=== PATIENT | female | born 1980 | race Caucasian/White ===

== ENCOUNTER 2016-03-09 15:48 | Emergency (ER) | payer BC ==
[2016-03-09 15:58] VITALS: BP 138/91
--- NOTE | 2016-03-09 16:16 | UC ---
Skin Complaint HPI - History of Current Complaint Chief Complaint: UCSkin Time Seen by Provider: 03/09/16 16:03 Stated Complaint: RIGHT EAR ? CYST PAIN Hx Obtained From: Patient Hx Last Menstrual Period: DEPO ?: No Onset/Duration: Sudden Onset - had a cyst incised this morning. Provider would not prescribe narcotic, Lasting Hours - 5, Still Present Onset Severity: Moderate Current Severity: Moderate Location: Other - right side of the neck behind the ear. Character: Pain Aggravating: Touch Alleviating: Nothing Associated Signs & Symptoms: Positive: Tenderness Related History: Other: - draining abscess behind the right ear. - Allergy/Home Medications Allergies/Adverse Reactions: Allergies Allergy/AdvReac Type Severity Reaction Status Date / Time Codeine Allergy Intermediate Hives Verified 03/09/16 15:58 Tramadol Allergy Intermediate Hives Verified 03/09/16 15:58 Naproxen [From Naprosyn] Allergy HIVES & SOB Verified 03/09/16 15:58 Home Medications: Home Medications Amoxicillin/Clavulanate TAB* [Augmentin TAB 875*] 875 mg PO BID 03/09/16 [ History Confirmed 03/09/16] Review of Systems Constitutional: Chills ENT: Ear Ache - behind right ear radiating down the jaw. All Other Systems Reviewed And Are Negative: Yes PMH/Surg Hx/FS Hx/Imm Hx Endocrine History Of: Reports: Thyroid Disease - Graves Disease ("borderline"). She is being followed by PCP. Denies: Diabetes, Hyperthyroidism, Hypothyroidism, Dyslipidemia Cardiovascular History Of: Denies: Cardiac Disorders, Hypertension, Pacemaker/ICD, Myocardial Infarction , Congestive Heart Failure, Atrial Fibrillation, Deep Vein Thrombosis, Bleeding Disorders Respiratory History Of: Denies: COPD, Asthma, Bronchitis, Pneumonia, Pulmonary Embolism GI/ History Of: Reports: Gastroesophageal Reflux, Kidney Stones - Last attack was 3 weeks ago., Diverticulitis - ?? Denies: Ulcer, Gastrointestinal Bleed, Gall Bladder Disease, Renal Disease, Urosepsis Neurological History Of: Denies: TIA, CVA, Dementia, Seizures, Migraine Psychological History Of: Denies: Anxiety, Depression, Bipolar Disorder, Schizophrenia, Post Traumatic Stress Disorder Cancer History Of: Denies: Lung Cancer, Colorectal Cancer, Breast Cancer, Prostate Cancer, Cervical Cancer Other History Of: Negative For: HIV, Hepatitis B, Hepatitis C, Anticoagulant Therapy - Surgical History Surgical History: Yes Surgery Procedure, Year, and Place: Appendectomy. Breast Reduction x 2. Tonsillectomy. R wrist 07/13/2012, ligament repair. 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 Lives: With Family Alcohol Use: Weekly Substance Use Type: None Smoking Status (MU): Heavy Every Day Tobacco Smoker Type: Cigarettes Amount Used/How Often: 1/2 PPD Length of Time of Smoking/Using Tobacco: since age 13 Have You Smoked in the Last Year: Yes Household Exposure Type: Cigarettes Cessation Counseling: Patient Advised to Stop - Immunization History Most Recent Influenza Vaccination: [id number] Physical Exam Triage Information Reviewed: Yes Appearance: No Pain Distress, Well-Nourished, Ill-Appearing, Pain Distress - just with touching or moving. Vital Signs: Initial Vital Signs Temp 99.3 F 03/09/16 15:54 Pulse 94 03/09/16 15:54 Resp 16 03/09/16 15:54 BP 138/91 03/09/16 15:54 Pulse Ox 99 03/09/16 15:54 Vital Signs Reviewed: Yes Eyes: Positive: Conjunctiva Clear ENT: Positive: Normal ENT inspection Dental Exam: Normal Neck: Positive: Tenderness @ - along the SCM from the abscess behind the ear. Respiratory Exam: Normal Cardiovascular Exam: Normal Course/Dx - Differential Diagnoses - Skin Complaint Differential Diagnoses: Abscess, Cellulitis, Erythema Multiforme - Diagnoses Provider Diagnoses: Abscess neck. Neuritis, neuralgia Discharge - Discharge Plan Condition: Stable Disposition: HOME Prescriptions: Cyclobenzaprine TAB* [Flexeril TAB*] 10 mg PO TID PRN #30 tab PRN Reason: Muscle pain Ketorolac TAB (NF) [Toradol TAB (NF)] 10 mg PO Q6H PRN #20 tab PRN Reason: Pain predniSONE TAB* [Deltasone TAB*] 20 mg PO DAILY #18 tab Patient Education Materials: Abscess (ED), Ketorolac (By mouth), Ketorolac (By injection), Prednisone (By mouth), Cyclobenzaprine (By mouth) Additional Instructions: Smoking Cessation Tricks. 1. Cut down by 1 cigarette per day every 2-3 days. Write the number of smokes for that day on the calendar. 2. Identify triggers to smoking: after meals, on the phone, in the car, with coffee, on breaks at work, etc. 3. Formulate a plan with a behavior to replace the smoking. Fireballs in the car , doodle pad on the phone, flavored creamer for the coffee, go for a walk after a meal or on break at work. 4. For stress smokes do deep breathing relaxation. Breath deep in through the nose hold the breath in for a few seconds then breath out slowly through the mouth. Nerve irritation: You have an irritation of the posterior auricular nerve due to the infection. The lyrica might help but prednisone can help to decrease the swelling around the irritated nerve to decrease the pain.
[2016-03-09] MEDS ORDERED: Ketorolac INJ* 60 MG/2 ML VIAL IM ONE (16:18)
== END 2016-03-09 17:20 | disposition home or self-care (01) ==
LOC: UCCORT 15:48
DX: L02.11 Cutaneous abscess of neck (principal); M79.2 Neuralgia and neuritis, unspecified; E05.00 Thyrotoxicosis with diffuse goiter without thyrotoxic crisis or storm; F17.210 Nicotine dependence, cigarettes, uncomplicated; Z88.5 Allergy status to narcotic agent
CPT/HCPCS: 99212; G0463; J1885

== ENCOUNTER 2016-03-16 13:11 | Emergency (ER) | payer BC ==
[2016-03-16 13:29] VITALS: BP 159/97
--- NOTE | 2016-03-16 13:39 | UC ---
Complaint Female HPI - HPI Summary HPI Summary: left flank pain for 2 days---had similar episode in January no stone seen in ureter but did have a 5 mm stone in renal pelvis, no n/v/d or urinary symptoms - History Of Current Complaint Chief Complaint: UCGU Stated Complaint: BACK PAIN, AND BURNING URINATION Time Seen by Provider: 03/16/16 13:39 Hx Obtained From: Patient Hx Last Menstrual Period: DEPO ?: No Onset/Duration: Sudden Onset, Lasting Days - 2 days, Still Present Timing: Constant Severity Initially: Mild Severity Currently: Moderate Pain Intensity: 8 Pain Scale Used: 0-10 Numeric Radiates to: left flank Character: Burning, Cramping Aggravating Factor(s): Nothing Alleviating Factor(s): Nothing Associated Signs And Symptoms: Positive: Back Pain Related Hx: Similar Episode/Dx as: - renal colic - Allergies/Home Medications Allergies/Adverse Reactions: Allergies Allergy/AdvReac Type Severity Reaction Status Date / Time Codeine Allergy Intermediate Hives Verified 03/16/16 14:20 Tramadol Allergy Intermediate Hives Verified 03/16/16 14:20 Naproxen [From Naprosyn] Allergy HIVES & SOB Verified 03/16/16 14:20 Home Medications: Home Medications Albuterol HFA INHALER* [Ventolin HFA Inhaler*] 03/16/16 [History] medroxyPROGESTERone ACETATE* [DEPO-Provera*] 03/16/16 [History] PMH/Surg Hx/FS Hx/Imm Hx Previously Healthy: No Endocrine History Of: Reports: Thyroid Disease - Graves Disease ("borderline"). She is being followed by PCP. Denies: Diabetes, Hyperthyroidism, Hypothyroidism, Dyslipidemia Cardiovascular History Of: Denies: Cardiac Disorders, Hypertension, Pacemaker/ICD, Myocardial Infarction , Congestive Heart Failure, Atrial Fibrillation, Deep Vein Thrombosis, Bleeding Disorders Respiratory History Of: Reports: Asthma Denies: COPD, Bronchitis, Pneumonia, Pulmonary Embolism GI/ History Of: Reports: Gastroesophageal Reflux, Kidney Stones - Last attack was 3 weeks ago., Diverticulitis - ?? Denies: Ulcer, Gastrointestinal Bleed, Gall Bladder Disease, Renal Disease, Urosepsis Neurological History Of: Denies: TIA, CVA, Dementia, Seizures, Migraine Psychological History Of: Denies: Anxiety, Depression, Bipolar Disorder, Schizophrenia, Post Traumatic Stress Disorder Cancer History Of: Denies: Lung Cancer, Colorectal Cancer, Breast Cancer, Prostate Cancer, Cervical Cancer Other History Of: Negative For: HIV, Hepatitis B, Hepatitis C, Anticoagulant Therapy - Surgical History Surgical History: Yes Surgery Procedure, Year, and Place: Appendectomy. Breast Reduction x 2. Tonsillectomy. R wrist 07/13/2012, ligament repair. RT wrist surgery 08/2015 - Family History Known Family History: Positive: Hypertension Negative: Cardiac Disease, Diabetes, Blood Disorder - Social History Occupation: Employed Full-time Lives: With Family Alcohol Use: Weekly Substance Use Type: None Smoking Status (MU): Current Every Day Smoker Type: Cigarettes Amount Used/How Often: 1/2 PPD Length of Time of Smoking/Using Tobacco: since age 13 Have You Smoked in the Last Year: Yes Household Exposure Type: Cigarettes - Immunization History Most Recent Influenza Vaccination: [id number] Review of Systems Constitutional: Negative Skin: Negative Eyes: Negative ENT: Negative Respiratory: Negative Cardiovascular: Negative Gastrointestinal: Negative Genitourinary: Negative Motor: Negative Neurovascular: Negative Musculoskeletal: Arthralgia - back and left flank pain Neurological: Negative Psychological: Negative All Other Systems Reviewed And Are Negative: Yes Physical Exam Triage Information Reviewed: Yes Appearance: Well-Appearing, Well-Nourished, Pain Distress Vital Signs: Initial Vital Signs Temp 99.4 F 03/16/16 13:22 Pulse 96 03/16/16 13:22 Resp 16 03/16/16 13:22 BP 159/97 03/16/16 13:22 Pulse Ox 98 03/16/16 13:22 Vital Signs Reviewed: Yes Eye Exam: Normal Eyes: Positive: Conjunctiva Clear ENT Exam: Normal ENT: Positive: Normal ENT inspection, Hearing grossly normal, TMs normal. Negative: Nasal congestion, Nasal drainage, Trismus, Muffled/hoarse voice Dental Exam: Normal Neck exam: Normal Neck: Positive: Supple, Nontender, No Lymphadenopathy Respiratory Exam: Normal Respiratory: Positive: Lungs clear, Normal breath sounds, No respiratory distress, No accessory muscle use Cardiovascular Exam: Normal Cardiovascular: Positive: RRR, No Murmur, Pulses Normal, Brisk Capillary Refill Abdominal Exam: Other Abdomen Description: Positive: Nontender, No Organomegaly, Soft. Negative: CVA Tenderness (R), CVA Tenderness (L) Bowel Sounds: Positive: Present Musculoskeletal Exam: Normal Musculoskeletal: Positive: Strength Intact, ROM Intact, No Edema Neurological Exam: Normal Neurological: Positive: Alert Psychological Exam: Normal Skin Exam: Normal Complaint Female Dx - Course Course Of Treatment: npo transfer to [facility] [place] for higher level of care - Differential Dx/Diagnosis Differential Diagnosis/HQI/PQRI: Renal Colic, Ureteral Stone, Urinary Tract Infection Provider Diagnoses: renal colic - Physician Notifications Discussed Patient Care With: Dr. Gume Cordero Time Discussed With Above Provider: 13:45 Instructed by Provider To: Transfer Discharge - Discharge Plan Condition: Stable Disposition: AGAINST MEDICAL ADVICE Referrals: Charis Arzate PA [Primary Care Provider] -
== END 2016-03-16 14:07 | disposition left against medical advice (07) ==
LOC: UCEAST 13:11
DX: N23 Unspecified renal colic (principal); Z87.442 Personal history of urinary calculi; Z88.6 Allergy status to analgesic agent; F17.210 Nicotine dependence, cigarettes, uncomplicated; Z32.02 Encounter for pregnancy test, result negative
CPT/HCPCS: 81002; 81025; 99202; G0463

== ENCOUNTER 2016-03-16 14:14 | Emergency (ER) | payer BC ==
[2016-03-16] MEDS ORDERED: NS 0.9% 1000 ML* 1,000 ML IV ONE (14:32)
[2016-03-16 14:46] LABS: Hematocrit 37 % (35-47); Hemoglobin 12.5 g/dl (12.0-16.0); Mean Corpuscular HGB Conc 34 g/dl (31-36); Mean Corpuscular Hemoglobin 32 pg (27-31); Mean Corpuscular Volume 96 fL (80-97); Mean Platelet Volume 11 um3 (7.4-10.4); Red Blood Count 3.88 10^6/ul (4.0-5.4); Red Cell Distribution Width 14 % (10.5-15); White Blood Count 9.4 10^3/ul (3.5-10.8)
[2016-03-16 14:57] LABS: Albumin 3.9 g/dL (3.2-5.2); BUN/Creatinine Ratio 11.6 (8-20); C Reactive Protein 53.99 mg/L (< 5.00); Calcium 9.2 mg/dL (8.6-10.3); EGFR African American 123.8 (>60); EGFR Non-African American 96.3 (>60); Globulin 2.8 g/dL (2-4); Potassium 3.9 mmol/L (3.5-5.0); Total Bilirubin 0.2 mg/dL (0.2-1.0); Total Protein 6.7 g/dL (6.4-8.9)
--- NOTE | 2016-03-16 15:00 | RAD ---
INDICATION: Left flank pain COMPARISON: None TECHNIQUE: Noncontrast axial source images were acquired from the level hemidiaphragms to the symphysis pubis as part of CT imaging for renal stone. Lung bases: The lung bases are clear. Liver: The liver is normal in size. Noncontrast imaging shows no evidence of a hepatic mass or ductal dilatation. Gallbladder: There are no calcified gallstones. There is no evidence of wall thickening or pericholecystic fluid.. Spleen: The spleen is normal in size. The noncontrast CT appearance is normal. Pancreas: Noncontrast imaging shows no pancreatic mass or ductal dilitation. Adrenal glands: No masses are identified. Kidneys/Bladder: There is no evidence of nephrolithiasis or CT evidence of hydronephrosis. There are multiple calcifications in the minor pelvis which are all believed to be extra urinary and represent phleboliths. Noncontrast imaging shows no evidence of a renal mass. The bladder is unremarkable.. Adenopathy: There is no evidence of intraperitoneal or retroperitoneal adenopathy. Evaluation is limited without oral contrast. Fluid collections: There are no free or localized fluid collections. Vessels: The aorta and iliac vessels are normal in caliber. There are no significant atherosclerotic changes. The IVC appears normal Pelvic organs: The uterus and adnexa appear normal GI tract: Evaluation of the bowel is limited without oral contrast. The stomach, small bowel, and lower GI tract appear grossly normal. There are no obstructive findings. The appendix is visualized and appears normal. Soft tissues: No soft tissue abnormalities of the extraperitoneal abdomen or pelvis are identified. Osseous structures: There are no acute osseous findings. IMPRESSION: NO CT EVIDENCE OF UROLITHIASIS OR OBSTRUCTION.
[2016-03-16 15:21] LABS: Urine Bacteria 1+ (Absent); Urine Bilirubin Negative (Negative); Urine Glucose Negative (Negative); Urine Nitrite Negative (Negative)
[2016-03-16] MEDS ORDERED: oxyCODONE/Acetamin 5/325 MG* TAB PO ONE (16:26)
--- NOTE | 2016-03-16 16:50 | ED ---
Jose Joel Billy, scribed for Arthur Zimmerman MD on 03/16/16 at 1433 . GI/ HPI - HPI Summary HPI Summary: Patient is a 35 year-old female with a history of kidney stones comes to [facility] presenting with left-sided flank pain starting 2 days ago. She reports pain severity 7/10. Pain is worse with deep breaths. Denies nausea, vomiting, or dysuria. She was seen at [place] in early January for a kidney stone. - History of Current Complaint Chief Complaint: EDFlankPain Time Seen by Provider: 03/16/16 14:22 Stated Complaint: KIDNEY PAIN Hx Obtained From: Patient Onset/Duration: Started Days Ago, Still Present Timing: Constant Severity: Moderate Current Severity: Moderate Pain Intensity: 7 Location of Pain: Flank Associated Signs and Symptoms: Negative: Nausea, Vomiting, Dysuria Aggravating Factor(s): Deep Breaths Alleviating Factor(s): Nothing - Allergy/Home Medications Allergies/Adverse Reactions: Allergies Allergy/AdvReac Type Severity Reaction Status Date / Time Codeine Allergy Intermediate Hives Verified 03/16/16 14:20 Tramadol Allergy Intermediate Hives Verified 03/16/16 14:20 Naproxen [From Naprosyn] Allergy HIVES & SOB Verified 03/16/16 14:20 PMH/Surg Hx/FS Hx/Imm Hx Endocrine/Hematology History: Reports: Hx Thyroid Disease - Graves Disease ( "borderline"). She is being followed by PCP. Denies: Hx Anticoagulant Therapy, Hx Diabetes Cardiovascular History: Denies: Hx Congestive Heart Failure, Hx Deep Vein Thrombosis, Hx Hypertension , Hx Myocardial Infarction, Hx Pacemaker/ICD Respiratory History: Reports: Hx Asthma, Hx Chronic Bronchitis, Hx Seasonal Allergies Denies: Hx Chronic Obstructive Pulmonary Disease (COPD), Hx Lung Cancer, Hx Pneumonia, Hx Pulmonary Embolism GI History: Reports: Hx Gastroesophageal Reflux Disease Denies: Hx Gall Bladder Disease, Hx Gastrointestinal Bleed, Hx Ulcer, Hx Urosepsis History: Reports: Hx Kidney Stones - Last attack was 3 weeks ago. Denies: Hx Renal Disease Musculoskeletal History: Reports: Hx Gout, Hx Tendonitis Sensory History: Reports: Hx Contacts or Glasses Denies: Hx Hearing Aid Opthamlomology History: Reports: Hx Contacts or Glasses Neurological History: Denies: Hx Dementia, Hx Migraine, Hx Seizures, Hx Transient Ischemic Attacks (TIA) Psychiatric History: Denies: Hx Anxiety, Hx Depression, Hx Panic Disorder, Hx Schizophrenia, Hx Bipolar Disorder - Surgical History Surgery Procedure, Year, and Place: Appendectomy. Breast Reduction x 2. Tonsillectomy. R wrist 07/13/2012, ligament repair. RT wrist surgery 08/2015 Infectious Disease History: No Infectious Disease History: Denies: Hx Clostridium Difficile, Hx Hepatitis, Hx Human Immunodeficiency Virus (HIV), Hx of Known/Suspected MRSA, Hx Shingles, Hx Tuberculosis, Hx Known/ Suspected VRE, Hx Known/Suspected VRSA, History Other Infectious Disease, Traveled Outside the [place] in Last 30 Days - Family History Known Family History: Positive: Hypertension Negative: Cardiac Disease, Diabetes, Blood Disorder - Social History Alcohol Use: Weekly Substance Use Type: Reports: None Smoking Status (MU): Current Every Day Smoker Type: Cigarettes Amount Used/How Often: 1/2 PPD Length of Time of Smoking/Using Tobacco: since age 13 Have You Smoked in the Last Year: Yes Review of Systems Negative: Vomiting, Nausea Positive: flank pain. Negative: dysuria All Other Systems Reviewed And Are Negative: Yes Physical Exam - Summary Physical Exam Summary: VITAL SIGNS: Reviewed. GENERAL: Patient is a well developed and nourished female who is lying comfortable in the stretcher. Patient is not in any acute respiratory distress. HEAD AND FACE: Normocephalic and atraumatic. EYES: PERRLA, EOMI x 2, No injected conjunctiva. EARS: Hearing grossly intact. Ear canals and tympanic membranes are WNL. MOUTH: Oropharynx within normal limits. NECK: Supple, trachea is midline, no adenopathy, no JVD. CHEST: Symmetric, no tenderness at palpation LUNGS: Clear to auscultation bilaterally. No wheezing or crackles. CVS: RRR,, S1 and S2 present, no murmurs or gallops appreciated. ABDOMEN: Soft, non-tender. No signs of distention. Positive bowel sounds. No rebound no guarding, and no masses palpated. No abdominal bruit or pulsations. Left CVAT's EXTREMITIES: FROM in all major joints, no edema, no cyanosis or clubbing. NEURO: Alert and oriented x 3. No acute neurological deficits. Speech is normal. SKIN: Dry and warm Triage Information Reviewed: Yes Vital Signs On Initial Exam: Initial Vitals Temp Pulse Resp BP Pulse Ox 97.8 F 95 16 137/83 100 03/16/16 14:15 03/16/16 14:15 03/16/16 14:15 03/16/16 14:15 03/16/16 14:15 Vital Signs Reviewed: Yes Diagnostics - Vital Signs Vital Signs Temp Pulse Resp BP Pulse Ox 03/16/16 14:15 97.8 F 95 16 137/83 100 - Laboratory Lab Results: Lab Results 03/16/16 03/16/16 03/16/16 Range/Units 13:00 14:35 14:35 WBC 9.4 (3.5-10.8) 10^3/ul RBC 3.88 L (4.0-5.4) 10^6/ul Hgb 12.5 (12.0-16.0) g/dl Hct 37 (35-47) % MCV 96 (80-97) fL MCH 32 H (27-31) pg MCHC 34 (31-36) g/dl RDW 14 (10.5-15) % Plt Count 194 (150-450) 10^3/ul MPV 11 H (7.4-10.4) um3 Neut % (Auto) 69.9 (38-83) % Lymph % (Auto) 20.8 L (25-47) % [place] % (Auto) 6.4 (1-9) % Eos % (Auto) 1.8 (0-6) % Baso % (Auto) 1.1 (0-2) % Absolute Neuts (auto) 6.6 (1.5-7.7) 10^3/ul Absolute Lymphs (auto) 1.9 (1.0-4.8) 10^3/ul Absolute Monos (auto) 0.6 (0-0.8) 10^3/ul Absolute Eos (auto) 0.2 (0-0.6) 10^3/ul Absolute Basos (auto) 0.1 (0-0.2) 10^3/ul Absolute Nucleated RBC 0 10^3/ul Nucleated RBC % 0 Sodium 132 L (133-145) mmol/L Potassium 3.9 (3.5-5.0) mmol/L Chloride 102 (101-111) mmol/L Carbon Dioxide 25 (22-32) mmol/L Anion Gap 5 (2-11) mmol/L BUN 8 (6-24) mg/dL Creatinine 0.69 (0.51-0.95) mg/dL Est GFR ( Amer) 123.8 (>60) Est GFR (Non-Af Amer) 96.3 (>60) BUN/Creatinine Ratio 11.6 (8-20) Glucose 99 (70-100) mg/dL Calcium 9.2 (8.6-10.3) mg/dL Total Bilirubin 0.20 (0.2-1.0) mg/dL AST 15 (13-39) U/L ALT 12 (7-52) U/L Alkaline Phosphatase 63 (34-104) U/L C-Reactive Protein 53.99 H (< 5.00) mg/L Total Protein 6.7 (6.4-8.9) g/dL Albumin 3.9 (3.2-5.2) g/dL Globulin 2.8 (2-4) g/dL Albumin/Globulin Ratio 1.4 (1-3) Lipase 11 (11.0-82.0) U/L Urine Color Straw Urine Appearance Cloudy Urine pH 6.0 (5-9) Ur Specific [place] 1.002 L (1.010-1.030) Urine Protein Negative (Negative) Urine Ketones Negative (Negative) Urine Blood 2+ H (Negative) Urine Nitrate Negative (Negative) Urine Bilirubin Negative (Negative) Urine Urobilinogen Negative (Negative) Ur Leukocyte Esterase Negative (Negative) Urine WBC (Auto) Absent (Absent) Urine RBC (Auto) Trace(0-2/hpf) (Absent) Ur Squamous Epith Cells Present H (Absent) Urine Bacteria 1+ H (Absent) Urine Glucose Negative (Negative) Result Diagrams: 03/16/16 14:35 03/16/16 14:35 Lab Statement: Any lab studies that have been ordered have been reviewed, and results considered in the medical decision making process. - CT abd/pel CT Interpretation Completed By: Radiologist - NO CT EVIDENCE OF UROLITHIASIS OR OBSTRUCTION. Re-Evaluation - Re-Evaluation First Eval Re-Evaluation Time: 16:28 GIGU Course/Dx - Course Assessment/Plan: Patient is a 35 year-old female with a history of kidney stones comes to [facility] presenting with left-sided flank pain starting 2 days ago. She reports pain severity 7/10. Pain is worse with deep breaths. Denies nausea, vomiting, or dysuria. She was seen at [place] in early January for a kidney stone. Bloodwork WNL except for sodium of 132 and CRP of 53.9. UA negative for UTI, 2+ blood. CT abd/pel shows now evidence of urolithiasis or obstruction. In ED course, he was given IV fluids, and Percocet for pain. Since she has no kidney stones, I believe her pain is secondary to musculoskeletal pain. She will be discharged home to follow up with her PCP. - Diagnoses Differential Diagnoses - Female: Constipation, Renal Calculi, Renal Colic Provider Diagnoses: Flank pain, acute Discharge - Discharge Plan Condition: Stable Disposition: HOME Prescriptions: oxyCODONE/Acetamin 5/325 MG* [Percocet 5/325 TAB*] 1 tab PO Q6H PRN #10 tab MDD Max 4 tabs / day PRN Reason: Pain Patient Education Materials: Low Back Strain (ED) Referrals: Charis Arzate PA [Primary Care Provider] - The documentation as recorded by the Jose meyer Billy accurately reflects the service I personally performed and the decisions made by me, Arthur Zimmerman MD.
[2016-03-16 17:07] VITALS: BP 133/85
== END 2016-03-16 17:05 | disposition home or self-care (01) ==
LOC: ED 14:14
DX: R10.84 Generalized abdominal pain (principal); Z87.442 Personal history of urinary calculi; F17.210 Nicotine dependence, cigarettes, uncomplicated
CPT/HCPCS: 36415; 74176; 80053; 81002; 81003; 81015; 81025; 83690; 85025; 86140; 87086; 96360; 99202; 99282; A9270-GY; G0463

== ENCOUNTER 2016-04-04 09:06 | Emergency (ER) | payer BC ==
[2016-04-04 09:24] VITALS: BP 130/95
--- NOTE | 2016-04-04 10:03 | RAD ---
INDICATION: Right hand pain. Overuse injury. COMPARISON: None TECHNIQUE: AP, lateral, and oblique views were obtained. FINDINGS: The bony structures, joint spaces, and soft tissues are normal for age. IMPRESSION: NEGATIVE EXAMINATION.
--- NOTE | 2016-04-04 10:03 | RAD ---
INDICATION: RIGHT wrist and hand pain. History of fracture of the proximal radius 2 years ago. Previous ulnar tendon surgery in 2016. COMPARISON: June 02, 2015 radiographs. TECHNIQUE: AP, lateral, and oblique views RIGHT wrist. REPORT AND IMPRESSION: Normal alignment and preserved joint spaces. Negative for fracture. No significant arthropathic change evident. Mild generalized soft tissue swelling most prominent along the ulnar aspect.
--- NOTE | 2016-04-04 10:04 | RAD ---
INDICATION: Right elbow pain. Overuse injury. COMPARISON: None TECHNIQUE: AP and lateral views were obtained. FINDINGS: The bony structures, joint spaces, and soft tissues are normal for age. IMPRESSION: NORMAL STUDY.
--- NOTE | 2016-04-04 10:49 | UC ---
Jordyn Joel Matthew, scribed for Migue Woodson MD on 04/04/16 at 1012 . Hand/Wrist HPI - HPI Summary HPI Summary: Nurses Note; PAIN IN RIGHT WRIST, HAND, AND ELBOW. PT STATES HISTORY OF PAIN IN LEFT ARM, IS SEEING A PROVIDER FOR PAIN, UNABLE TO GET INTO THEM UNTIL MAY. 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 In Room Note; A 35 y/o female presents to the ED with right arm, wrist, and hand pain. The pain runs from the inside of the right elbow down into the 4-5 fingers of the right hand. Associated symptoms include an inability to make a fist, decreased ROM in the right wrist, and numbness/tingling in the 4-5 fingers of the right hand. She has a long Hx of ulnar discomfort in the right arm. She had an ulnar release on August 16, as well as two ganglion cysts removed. The patient recently started working in an [email or web address] on 03/29 and involves frequent lifting. She has been taking Tylenol 800mg every 4 hours for pain. - History Of Current Complaint Chief Complaint: UCUpperExtremity Stated Complaint: ELBOW AND WRIST PAIN Time Seen by Provider: 04/04/16 09:22 Hx Obtained From: Patient Hx Last Menstrual Period: DEPO ?: No Onset/Duration: Lasting Days, Still Present Severity Initially: Moderate Severity Currently: Moderate Pain Intensity: 7 Pain Scale Used: 0-10 Numeric Aggravating Factor(s): Lifting, Flexion - wrist, Extension - wrist Associated Signs And Symptoms: Positive: Numbness/Tingling - 4-5 fingers - Allergies/Home Medications Allergies/Adverse Reactions: Allergies Allergy/AdvReac Type Severity Reaction Status Date / Time Codeine Allergy Intermediate Hives Verified 03/16/16 14:20 Tramadol Allergy Intermediate Hives Verified 03/16/16 14:20 Naproxen [From Naprosyn] Allergy HIVES & SOB Verified 03/16/16 14:20 PMH/Surg Hx/FS Hx/Imm Hx Endocrine History Of: Reports: Thyroid Disease - Graves Disease ("borderline"). Denies: Diabetes, Hyperthyroidism, Hypothyroidism, Dyslipidemia Cardiovascular History Of: Denies: Cardiac Disorders, Hypertension, Pacemaker/ICD, Myocardial Infarction , Congestive Heart Failure, Atrial Fibrillation, Deep Vein Thrombosis, Bleeding Disorders Respiratory History Of: Reports: Asthma Denies: COPD, Bronchitis, Pneumonia, Pulmonary Embolism GI/ History Of: Reports: Gastroesophageal Reflux, Kidney Stones - Last attack was 3 weeks ago., Diverticulitis - ?? Denies: Ulcer, Gastrointestinal Bleed, Gall Bladder Disease, Renal Disease, Urosepsis Neurological History Of: Denies: TIA, CVA, Dementia, Seizures, Migraine Psychological History Of: Denies: Anxiety, Depression, Bipolar Disorder, Schizophrenia, Post Traumatic Stress Disorder Cancer History Of: Denies: Lung Cancer, Colorectal Cancer, Breast Cancer, Prostate Cancer, Cervical Cancer Other History Of: Negative For: HIV, Hepatitis B, Hepatitis C, Anticoagulant Therapy - Surgical History Surgical History: Yes Surgery Procedure, Year, and Place: Appendectomy. Breast Reduction x 2. Tonsillectomy. R wrist 07/13/2012, ligament repair. RT wrist surgery 08/2015 - Family History Known Family History: Positive: Hypertension Negative: Cardiac Disease, Diabetes, Blood Disorder - Social History Alcohol Use: Weekly Substance Use Type: None Smoking Status (MU): Heavy Every Day Tobacco Smoker Type: Cigarettes Amount Used/How Often: 10 CIG/DAY Length of Time of Smoking/Using Tobacco: since age 13 Have You Smoked in the Last Year: Yes Household Exposure Type: Cigarettes - Immunization History Most Recent Influenza Vaccination: [id number] Review of Systems Constitutional: Negative Skin: Negative Eyes: Negative ENT: Negative Respiratory: Negative Cardiovascular: Negative Gastrointestinal: Negative Genitourinary: Negative Motor: Decreased ROM - of the right wrist, Other - inability to make a fist in the right hand Neurovascular: Other - numbness/tingling in the 4-5 finger of the right hand Neurological: Negative Psychological: Negative All Other Systems Reviewed And Are Negative: Yes Physical Exam Triage Information Reviewed: Yes Appearance: Well-Appearing, No Pain Distress, Well-Nourished Vital Signs: Initial Vital Signs Temp 97.4 F 04/04/16 09:14 Pulse 85 04/04/16 09:14 Resp 16 04/04/16 09:14 BP 130/95 04/04/16 09:14 Pulse Ox 100 04/04/16 09:14 Vital Signs Reviewed: Yes Eyes: Positive: Conjunctiva Clear ENT: Positive: Hearing grossly normal, Pharynx normal, TMs normal Neck: Positive: Supple, No Lymphadenopathy Respiratory: Positive: Chest non-tender, Lungs clear, Normal breath sounds, No respiratory distress Cardiovascular: Positive: RRR, No Murmur Abdomen Description: Positive: Nontender, No Organomegaly Bowel Sounds: Positive: Present Musculoskeletal: Positive: Strength Intact, Other: - Arm held at 90 degrees at the elbow; Well healed scar over the ulna; Ganglion scar over the dorsum of the right wrist well healed as well; Inability to flex or extend at the wrist and inability to make a fist; Decreased ability to extend all of the fingers of the right hand; Numbness over the 4-5 finger of the right hand. Neurological: Positive: Alert Psychological: Positive: Age Appropriate Behavior Diagnostics - Radiology Elbow XR Xray Interpretation: No Acute Changes - IMPRESSION: NORMAL STUDY. Radiology Interpretation Completed By: Radiologist Wrist XR Xray Interpretation: No Acute Changes - REPORT AND IMPRESSION: Normal alignment and preserved joint spaces. Negative for fracture. No significant arthropathic change evident. Mild generalized soft tissue swelling most prominent along the ulnar aspect. Radiology Interpretation Completed By: Radiologist Hand XR Xray Interpretation: No Acute Changes - IMPRESSION: NEGATIVE EXAMINATION. Radiology Interpretation Completed By: Radiologist Hand/Wrist Course/Dx - Course Course Of Treatment: Patient has significant discomfort of the right UE with numbness over the ulnar distribution. She may need an ulnar release at the elbow. Of note is the ISTOP registry. There are multiple biweekly Rx for hydrocodone and I discussed the danger of dependence with the patient. - Differential Dx/Diagnosis Differential Diagnosis/HQI/PQRI: Other - Muscle strain vs ulnar nerve impingement Provider Diagnoses: Probable ulnar nerve impingement syndrome Discharge - Discharge Plan Condition: Stable Disposition: HOME Prescriptions: HYDROcodone/ACETAMIN 5-325 MG* [[place] 5-325 TAB*] 1 tab PO Q6H #10 tab MDD 4 Patient Education Materials: Cubital Tunnel Syndrome (ED) Forms: *Work Release Referrals: Charis Arzate PA [Primary Care Provider] - Additional Instructions: WE DISCUSSED: 1. YOU HAVE injured your ulnar nerve. The main treatment is rest and time. Use splint and sling. 2. Warm moist heat in the morning; ice to painful area during the day. 3. Ibuprofen. 4. Vicodin for severe pain. 10 given. 5. Call orthopedics for follow up next week if you are not improved. You may need attention to your ulnar nerve at the elbow. 6. As we discussed, you need to be aware that your use of hydrocodone can create dependency, and you should speak to your physician about minimizing intake of this drug. The documentation as recorded by the Jordyn meyer Matthew accurately reflects the service I personally performed and the decisions made by me, Migue Woodson MD.
== END 2016-04-04 11:20 | disposition home or self-care (01) ==
LOC: UCEAST 09:06
DX: M25.531 Pain in right wrist (principal); M25.521 Pain in right elbow; M79.641 Pain in right hand; R20.0 Anesthesia of skin; R03.0 Elevated blood-pressure reading, without diagnosis of hypertension; Z88.6 Allergy status to analgesic agent; Z88.5 Allergy status to narcotic agent; F17.210 Nicotine dependence, cigarettes, uncomplicated
CPT/HCPCS: 99212; G0463

== ENCOUNTER 2016-07-01 08:46 | Day surgery (SDC) | payer BC ==
[~2016-07-01 08:46] MED LIST: Buffered Lidocaine 1% SYRIN* 3 ML/SYR SYRINGE INTRADERM ONE
[2016-07-01] MEDS ORDERED: Famotidine IV* 10 MG/ML 2 ML (20 mg) ONE (10:03)
[2016-07-01] MEDS ORDERED: ceFAZolin 2 GM PREMIX(*) 2 GM/50 ML BAG IVPB ONE (10:03)
[2016-07-01] MEDS ORDERED: Dexamethasone IV* 4 MG/ML 1 ML (4 MG) ONE (10:04)
[2016-07-01] MEDS: Dexamethasone IV* 4 MG/ML 1 ML (4 MG) IV SLOW PU ONE ×2 (10:11→10:19)
[2016-07-01] MEDS: Famotidine IV* 10 MG/ML 2 ML (20 mg) IV ONE ×2 (10:18→10:28)
[2016-07-01] MEDS ORDERED: Bupivacaine 0.25% SDV* 30 ML ONE (10:48)
[2016-07-01] MEDS ORDERED: Propofol* 10 MG/ML 20 ML BTL IV PUSH ONE (10:59)
[2016-07-01] MEDS ORDERED: fentaNYL* 50 MCG/ML 2 ML VIAL (100 MCG VIAL) ONE ×3 (10:59→11:42)
[2016-07-01] MEDS ORDERED: Lidocaine 2% PF * 5 ML VIAL ONE (10:59)
[2016-07-01] MEDS ORDERED: Ondansetron INJ* 2 MG/ML VIAL ONE (11:23)
[2016-07-01] MEDS ORDERED: fentaNYL* 50 MCG/ML 2 ML VIAL (100 MCG VIAL) IV PRN (11:28)
[2016-07-01] MEDS ORDERED: HYDROcodone/ACETAMIN 5-325 MG* 1 TAB PO PRN (11:28)
[2016-07-01] MEDS ORDERED: PROCHLORPERAZINE INJ 5 MG/ML 2 ML VIAL IV PRN (11:28)
[2016-07-01 12:20] VITALS: BP 119/96
[2016-07-01] MEDS ORDERED: HYDROcodone/ACETAMIN 5-325 MG* 1 TAB ONE (12:23)
--- NOTE | 2016-07-02 02:57 | OP ---
DATE OF SURGERY: 07/01/16 - [facility] DATE OF : 78 SURGEON: Zia Stanley MD IT OPERATIONS ANALYST: MAYURI Cho ANESTHESIOLOGIST: Dr. Borjas. ANESTHESIA: General. PRE-OP DIAGNOSIS: Right cubital tunnel syndrome. POST-OP DIAGNOSIS: Right cubital tunnel syndrome. OPERATIVE PROCEDURE: Right in situ cubital tunnel release. INDICATIONS: Jes is a 35-year-old female with clinical signs and symptoms of cubital tunnel syndrome. She related numbness and tingling in the radial 3 digits as significant tingling in the ring and small fingers. She has a marked Tinel's sign over the cubital tunnel and she is very tender over the ulnar nerve in the cubital tunnel region. Elbow flexion test is positive. Her electrodiagnostic studies were negative. I talked about the relatively low sensitivity of electrodiagnostics of cubital tunnel syndrome and that is really a clinical diagnosis. I thought she would improve significantly with cubital tunnel release so we talked about risks and benefits and she decided to proceed with surgery. EBL: 5 mL. COMPLICATIONS: None. FINDINGS: As expected. DESCRIPTION OF PROCEDURE: Jes was seen in the preoperative holding area. The correct, site and side of procedure were identified. We came back to the operating room where the arm was prepped and draped in the usual fashion and formal time-out was performed. I marked out an 8-cm incision centered over Moncada's ligament and extending proximally and distally in line with the course of the ulnar nerve. The arm was then exsanguinated with the Esmarch and the tourniquet inflated to 250 mmHg. I carried dissection sharply down proximally to the deep fascia. Distally, I used the tenotomy scissors to bluntly divide the subcutaneous tissue in order to preserve the medial antebrachial cutaneous nerve. This was seen and identified and preserved. I then once had all the soft tissue released off of the fascia, I then went ahead and began the decompression of the cubital tunnel just distal to Moncada's ligament. The ulnar nerve was seen and the superficial fascia between the two heads of the FCU was split with tenotomy scissors. I then split the two muscle heads with the [facility] retractor and then under direct visualization and released the subfascial layer to a level of about 10 cm distal to the medial epicondyle. I then released Moncada's ligament and continued the decompression proximally releasing the fascia overlying the ulnar nerve all the way up to the arcade of [place]. This was then sharply incised with a tenotomy scissors under direct visualization with the used of an appendiceal retractor. I then checked the decompression proximally and distally with my finger and I cannot feel any areas of compression. There was a bit of a thick fascial band on the anterior aspect of the fascia at the anterior margin of the triceps, so I excised with the tenotomy scissors. I then went ahead and checked for any additional potential sides of compression. Everything looked good. The two motor branches towards the FCU were identified coming off ulnar nerve and preserved. The Bovie was then used to achieve hemostasis. The wound was copiously irrigated. 3-0 Polysorb was used to approximate the deep tissue and the skin was closed with 4-0 nylon horizontal mattress suture. The wound was dressed with Xeroform, 4x4s and ABDs, sterile Webril and an Osei wrap. Tourniquet was deflated and the hand pinked up immediately. She was then woken up and taken to recovery room in stable condition. [id number]/[facility] #: [id number] [place]
== END 2016-07-01 12:46 | disposition home or self-care (01) ==
LOC: OREAST 08:46
PROVIDERS: ATTEND Orthopaedic Surgery Hand Surgery
DX: G56.21 Lesion of ulnar nerve, right upper limb (principal); F17.210 Nicotine dependence, cigarettes, uncomplicated; J45.909 Unspecified asthma, uncomplicated
CPT/HCPCS: J0690; J1100; J2405; J2704; J3010

== ENCOUNTER 2016-10-15 12:11 | Emergency (ER) | payer BC ==
[2016-10-15 12:30] VITALS: BP 121/93
[2016-10-15] MEDS ORDERED: Cephalexin CAP* 500 MG PO ONE (12:43)
[2016-10-15] MEDS ORDERED: Phenazopyridine TAB* 100 MG PO ONE (12:43)
--- NOTE | 2016-10-15 12:51 | UC ---
Complaint Female HPI - HPI Summary HPI Summary: 35 yo female with 2 day hx of terminal dysuria/urgency and frequency no f/c slight LBP no n/v had diarrhea before this started - History Of Current Complaint Chief Complaint: UCGU Stated Complaint: URINARY Time Seen by Provider: 10/15/16 12:39 Hx Obtained From: Patient Hx Last Menstrual Period: Depo-Provera Onset/Duration: Sudden Onset, Lasting Days Timing: Lasting Seconds Severity Initially: Moderate Severity Currently: None Pain Intensity: 0 - pain with urination only Pain Scale Used: 0-10 Numeric Character: Burning Associated Signs And Symptoms: Positive: Back Pain - sligh. Negative: Fever, Vaginal Bleeding/Discharge, Vaginal Discharge, Nausea, Vomiting(# Of Episodes =) , Genital Swelling, Genital Blisters - Allergies/Home Medications Allergies/Adverse Reactions: Allergies Allergy/AdvReac Type Severity Reaction Status Date / Time Codeine Allergy Intermediate Hives Verified 10/15/16 12:26 Naproxen [From Naprosyn] Allergy Intermediate HIVES & SOB Verified 10/15/16 12: 26 Tramadol Allergy Intermediate Hives Verified 10/15/16 12:26 Home Medications: Home Medications Pregabalin CAP(*) [Lyrica CAP(*)] 150 mg PO QID 10/15/16 [History Confirmed ] PMH/Surg Hx/FS Hx/Imm Hx Previously Healthy: Yes Respiratory History: Asthma Other History Of: Negative For: HIV, Hepatitis B, Hepatitis C, Anticoagulant Therapy - Surgical History Surgical History: Yes Surgery Procedure, Year, and Place: Appendectomy. Breast Reduction x 2. Tonsillectomy. R wrist 07/13/2012, ligament repair. RT wrist surgery 08/2015 - Family History Known Family History: Positive: Hypertension Negative: Cardiac Disease, Diabetes, Blood Disorder - Social History Alcohol Use: Occasionally Substance Use Type: None Smoking Status (MU): Light Every Day Tobacco Smoker Type: Cigarettes Amount Used/How Often: < 1/2 PPD Length of Time of Smoking/Using Tobacco: Since Age 20 Have You Smoked in the Last Year: Yes Household Exposure Type: Cigarettes - Immunization History Most Recent Influenza Vaccination: 2358-6305 Most Recent Tetanus Shot: 08/13/15 Review of Systems Constitutional: Negative Skin: Negative Eyes: Negative ENT: Negative Respiratory: Negative Cardiovascular: Negative Gastrointestinal: Negative Genitourinary: Dysuria, Frequency, Urgency Motor: Negative Neurovascular: Negative Musculoskeletal: Negative Neurological: Negative Psychological: Negative All Other Systems Reviewed And Are Negative: Yes Physical Exam Triage Information Reviewed: Yes Appearance: Well-Appearing, No Pain Distress, Well-Nourished Vital Signs: Initial Vital Signs Temp 98.1 F 10/15/16 12:16 Pulse 88 10/15/16 12:16 Resp 16 10/15/16 12:16 BP 121/93 10/15/16 12:16 Pulse Ox 100 10/15/16 12:16 Vital Signs Reviewed: Yes Eyes: Positive: Conjunctiva Clear ENT: Positive: Hearing grossly normal. Negative: Nasal congestion, Nasal drainage, Trismus, Muffled/hoarse voice Neck: Positive: Supple, Nontender, No Lymphadenopathy Respiratory: Positive: Lungs clear, Normal breath sounds, No respiratory distress, No accessory muscle use Cardiovascular: Positive: RRR, No Murmur Abdomen Description: Positive: Nontender, No Organomegaly, Soft Bowel Sounds: Positive: Present Musculoskeletal: Positive: ROM Intact, No Edema Neurological: Positive: Alert Psychological Exam: Normal Skin Exam: Normal Complaint Female Dx - Differential Dx/Diagnosis Provider Diagnoses: acute cystitis Discharge - Discharge Plan Condition: Stable Disposition: HOME Prescriptions: Cephalexin CAP* [Keflex 500 CAP*] 500 mg PO BID #14 cap Phenazopyridine TAB* [Pyridium 100 mg TAB*] 100 mg PO TID #6 tab Patient Education Materials: Urinary Tract Infection in Women (ED) Referrals: Isaak Uriostegui [Primary Care Provider] - 3 Days (if not better) Additional Instructions: culture is pending recheck for new or worsening symptoms or if not better in 2-3 days
== END 2016-10-15 13:00 | disposition home or self-care (01) ==
LOC: UCCORT 12:11
DX: N30.00 Acute cystitis without hematuria (principal); Z32.02 Encounter for pregnancy test, result negative; F17.200 Nicotine dependence, unspecified, uncomplicated; Z88.5 Allergy status to narcotic agent
CPT/HCPCS: 81003; 84702; 87077; 87086; 87186; 99212; A9270-GY; G0463

== ENCOUNTER 2016-10-21 09:06 | Day surgery (SDC) | payer BC ==
[~2016-10-21 09:06] MED LIST changes: +Buffered Lidocaine 0.9% SYRIN* 5 ML/SYR SYRINGE INTRADERM ONE; -Buffered Lidocaine 1% SYRIN* 3 ML/SYR SYRINGE INTRADERM ONE
[2016-10-21] MEDS ORDERED: Midazolam* 1 MG/ML 5 ML VIAL (5 MG) ONE (09:55)
[2016-10-21] MEDS ORDERED: fentaNYL* 50 MCG/ML 2 ML VIAL (100 MCG VIAL) ONE (09:55)
[2016-10-21] MEDS ORDERED: Bupivacaine 0.25% SDV* 30 ML ONE (10:15)
[2016-10-21] MEDS ORDERED: Propofol* 10 MG/ML 20 ML BTL IV PUSH ONE (10:38)
[2016-10-21] MEDS ORDERED: HYDROcodone/ACETAMIN 5-325 MG* 1 TAB ONE (11:17)
[2016-10-21 11:39] VITALS: BP 116/78
--- NOTE | 2016-10-21 16:14 | OP ---
DATE OF OPERATION: 10/21/16 - [facility] DATE OF : 78 SURGEON: Zia Stanley MD. DIRECTOR OF SALES AND MARKETING: MAYURI Bedoya. ANESTHESIOLOGIST: Dr. Purdy. ANESTHESIA: Local MAC. PRE-OP DIAGNOSIS: Right carpal tunnel syndrome. POST-OP DIAGNOSIS: Right carpal tunnel syndrome. OPERATIVE PROCEDURE: Right open carpal tunnel release. INDICATIONS: Jes has had progressive right carpal tunnel syndrome symptoms. She had an ulnar nerve decompression done several months ago by me and the symptoms have completely resolved in the small and the ring fingers. These were the more substantial symptoms that she was having. However, since that surgery, she has noticed significant progression of the radial-sided symptoms. This consisted of intermittent numbness and tingling, then falling asleep every morning and taking some time before it wakes back up. She has been bracing, and I talked to her about continuing nonoperative treatments versus doing the carpal tunnel release. She wanted to proceed given the relief she has had in the ulnar digits, so we talked about risks and benefits and she elected to proceed. ESTIMATED BLOOD LOSS: 2 mL. COMPLICATIONS: None. FINDINGS: As expected. DESCRIPTION OF PROCEDURE: Jes was seen in the preoperative holding area and the correct side, site, and procedure were identified. We came back to the operating room where she got some anesthesia and then I infiltrated the operative area with 0.25% plain Marcaine. The arm was then prepped and draped in the usual fashion and a formal time-out was performed. I began by making a longitudinal incision 2 to 3 cm incision in length in the standard location for an open carpal tunnel release. Dissection was carried down through the subcutaneous tissue and palmar fascia. The transverse carpal ligament was released just off the radial aspect of the hook of the hamate from distal to proximal. Once I got proximal, I released the subcutaneous tissue and fascia, and then retracted that volarly and ulnarly and then with the Juan retractor in place, I released the remainder of the transverse carpal ligament and the distal antebrachial fascia with the tenotomy scissors. I then checked the decompression, there was absolutely no compression proximally or distally, so we went ahead and irrigated out the wound. Skin was closed with 4-0 nylon suture. The wound was dressed with Xeroform, 4x4's, sterile Webril and an Osei bandage. Tourniquet was deflated. The arm had been exsanguinated with the Esmarch and the tourniquet inflated to 250 mmHg prior to making the skin incision. The hand pinked up immediately. She was woken up and taken to the recovery room in stable condition. [id number]/[facility] #: [id number] MTDD
== END 2016-10-21 11:36 | disposition home or self-care (01) ==
LOC: OREAST 09:06
PROVIDERS: ATTEND Orthopaedic Surgery Hand Surgery
DX: G56.01 Carpal tunnel syndrome, right upper limb (principal); J45.909 Unspecified asthma, uncomplicated; Z87.891 Personal history of nicotine dependence; K21.9 Gastro-esophageal reflux disease without esophagitis
CPT/HCPCS: 81025; J2250; J2704; J3010

== ENCOUNTER 2016-11-07 11:00 | Emergency (ER) | payer BC ==
[2016-11-07 11:15] VITALS: BP 117/77
--- NOTE | 2016-11-07 11:42 | UC ---
HPI Wound/Suture Re-check - HPI Summary HPI Summary: Pt presents with c/o pain, swelling in post surgical wound to right wrist. Pt reports that she had carpal tunnel surgery on 10/21/16. Pt removed sutures a few days ago and now reports that there is a retained suture. 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 No c/o swelling tenderness at surgical incision site. - History Of Current Complaint Hx Obtained From: Patient Hx Last Menstrual Period: on depo Onset/Duration: Gradual Onset, Lasting Days, Still Present, Worse Since - onset Severity: Moderate <Malini Burt NP - Last Filed: 11/07/16 13:34> <Tamiko Lewis - Last Filed: 11/07/16 13:40> - History Of Current Complaint Chief Complaint: UCSkin Stated Complaint: RIGHT HAND SKIN COMPLAINT Time Seen by Provider: 11/07/16 11:17 - Allergies/Home Medications Allergies/Adverse Reactions: Allergies Allergy/AdvReac Type Severity Reaction Status Date / Time Codeine Allergy Intermediate Hives Verified 11/07/16 11:08 Naproxen [From Naprosyn] Allergy Intermediate HIVES & SOB Verified 11/07/16 11: 08 Tramadol Allergy Intermediate Hives Verified 11/07/16 11:08 PMH/Surg Hx/FS Hx/Imm Hx Previously Healthy: Yes Other History Of: Negative For: HIV, Hepatitis B, Hepatitis C, Anticoagulant Therapy - Surgical History Surgical History: Yes Surgery Procedure, Year, and Place: Appendectomy. Breast Reduction x 2. Tonsillectomy. R wrist 07/13/2012, ligament repair. RT wrist surgery 08/2015. carpal tunnel right wrist 10/21/16. 07/2016-ULNAR NERVE-RIGHT ARM. right carpal tunnel sx 10/2016 - Family History Known Family History: Positive: Hypertension Negative: Cardiac Disease, Diabetes, Blood Disorder - Social History Occupation: Employed Full-time Lives: With Family Alcohol Use: Occasionally Substance Use Type: None Smoking Status (MU): Heavy Every Day Tobacco Smoker Type: Cigarettes Amount Used/How Often: 1/2 PPD X 15 YEARS Length of Time of Smoking/Using Tobacco: Since Age 20 Have You Smoked in the Last Year: Yes Household Exposure Type: Cigarettes - Immunization History Most Recent Influenza Vaccination: [id number] Most Recent Tetanus Shot: 08/13/15 <Malini Burt NP - Last Filed: 11/07/16 13:34> Review of Systems Constitutional: Negative Skin: Other - swelling, tenderness, scant amount of discharge, retained suture Eyes: Negative ENT: Negative Respiratory: Negative Cardiovascular: Negative Gastrointestinal: Negative Genitourinary: Negative Motor: Other - tenderness right wrist Neurovascular: Negative Musculoskeletal: Edema - right wrist, Myalgia - right wrist Neurological: Negative Psychological: Negative All Other Systems Reviewed And Are Negative: Yes <Malini Burt NP - Last Filed: 11/07/16 13:34> Physical Exam Triage Information Reviewed: Yes Appearance: Well-Appearing Vital Signs: Initial Vital Signs Temp 98.7 F 11/07/16 11:09 Pulse 75 11/07/16 11:09 Resp 16 11/07/16 11:09 BP 117/77 11/07/16 11:09 Pulse Ox 100 11/07/16 11:09 Vital Signs Reviewed: Yes Eye Exam: Normal ENT Exam: Normal Neck exam: Normal Respiratory Exam: Normal Cardiovascular Exam: Normal Musculoskeletal Exam: Other Musculoskeletal: Positive: Edema @ - right wrist, Other: - right wrist anterior aspect to base of palm mild erythema, ~ 2 cm diameter, surgical wound healed, 1 black suture intact , knot is external, when cut, suture unable to be removed Neurological Exam: Normal Psychological Exam: Normal Skin Exam: Other Skin: Positive: Other - right wrist anterior aspect to base of palm mild erythema, ~ 2 cm diameter, surgical wound healed, 1 black suture intact , knot is external, when cut, suture unable to be removed <Malini Burt NP - Last Filed: 11/07/16 13:34> Vital Signs: Initial Vital Signs Temp 98.7 F 11/07/16 11:09 Pulse 75 11/07/16 11:09 Resp 16 11/07/16 11:09 BP 117/77 11/07/16 11:09 Pulse Ox 100 11/07/16 11:09 <Tamiko Lewis - Last Filed: 11/07/16 13:40> Course/Dx - Differential Dx - Laceration/Wound Differential Diagnoses: Abscess, Healing Wound, Other - retained suture Provider Diagnoses: infected surgical wound right wrist <Malini Burt NP - Last Filed: 11/07/16 13:34> Discharge <Javed CONCRETE VIBRATOR OPERATOR,Malini Cardoza - Last Filed: 11/07/16 13:34> <Tamiko Lewis - Last Filed: 11/07/16 13:40> - Discharge Plan Condition: Stable Disposition: HOME Prescriptions: Cephalexin CAP* [Keflex 500 CAP*] 500 mg PO Q12H #14 cap Patient Education Materials: Surgical Site Infections (ED) Referrals: Zia Stanley MD [Medical Doctor] - Isaak Uriostegui [Primary Care Provider] - Additional Instructions: Please follow up was soon as possible with Dr. Stanley. Please soak your wrist in warm water and epsom salt (follow direction on bag) at least twice daily. Attestation Statement User Type: Provider - I was available for consult. This patient was seen by the CHANTELL. The patient was not presented to, seen by, or examined by me. -Cierra <Tamiko Lewis - Last Filed: 11/07/16 13:40>
[2016-11-07] MEDS ORDERED: Lidocaine/Epineph/Tetraca SOL* (LET solution) 4 ML BTL TOPICAL ONE (11:43)
--- NOTE | 2016-11-07 12:58 | RAD ---
INDICATION: Postsurgical infection right wrist. COMPARISON: Comparison is made with a prior x-ray study of the right hand from April 17, 2016. TECHNIQUE: Multiple real-time images of the right wrist were obtained. FINDINGS: There is soft tissue swelling present along the anterior aspect of the right wrist. There appears to be edema in the subcutaneous tissues. No fluid collection or abscess is seen. IMPRESSION: SOFT TISSUE SWELLING, NO EVIDENCE FOR ABSCESS.
== END 2016-11-07 13:30 | disposition home or self-care (01) ==
LOC: UCCORT 11:00
DX: T81.4XXA Infection following a procedure, initial encounter (principal); Z88.6 Allergy status to analgesic agent; Z88.5 Allergy status to narcotic agent; F17.210 Nicotine dependence, cigarettes, uncomplicated
CPT/HCPCS: 99213; G0463

== ENCOUNTER 2017-06-02 06:51 | Day surgery (SDC) | payer BC ==
[~2017-06-02 06:51] MED LIST changes: +Dexamethasone TAB* 4 MG PO ONE; +DiMENhydriNATE IV* 50 MG/ML VIAL IV PUSH PRN; +Famotidine IV* 10 MG/ML 2 ML (20 mg) IV ONE; +Morphine INJ* 2 MG/ML 1 ML CARPUJECT IV PRN; +Naloxone* 0.4 MG/ML 1 ML VIAL IV PRN; +PROCHLORPERAZINE INJ 5 MG/ML 2 ML VIAL IV PRN; +Scopolamine 1.5 mg* PATCH TRANSDERM PRN
[2017-06-02] MEDS ORDERED: ceFAZolin 2 GM PREMIX (*) 2 GM/50 ML BAG IVPB ONE (07:00)
[2017-06-02] MEDS ORDERED: Dexamethasone TAB* 4 MG ONE ×2 (07:00→07:01)
[2017-06-02] MEDS ORDERED: Famotidine IV* 10 MG/ML 2 ML (20 mg) ONE (07:00)
[2017-06-02] MEDS ORDERED: Bupivacaine 0.25% SDV* 30 ML ONE (07:03)
[2017-06-02] MEDS ORDERED: Lidocaine 1% MPF wEPI 200,000* 30 ML SDV ONE (07:04)
[2017-06-02] MEDS ORDERED: Midazolam* 1 MG/ML 5 ML VIAL (5 MG) ONE (07:15)
[2017-06-02] MEDS ORDERED: fentaNYL* 50 MCG/ML 2 ML VIAL (100 MCG VIAL) ONE ×2 (07:16→09:54)
[2017-06-02] MEDS ORDERED: Morphine INJ* 10 MG/ML 1 ML CARPUJECT ONE (08:24)
[2017-06-02] MEDS ORDERED: Ondansetron INJ* 2 MG/ML VIAL ONE (08:24)
[2017-06-02] MEDS ORDERED: Lidocaine 2% PF * 5 ML VIAL ONE (08:24)
[2017-06-02] MEDS ORDERED: Propofol* 10 MG/ML 20 ML BTL IV PUSH ONE (08:24)
[2017-06-02] MEDS ORDERED: oxyCODONE/Acetamin 5/325 MG* TAB ONE (09:54)
[2017-06-02] MEDS: oxyCODONE/Acetamin 5/325 MG* TAB PO PRN ×2 (09:55→09:58)
[2017-06-02] MEDS: fentaNYL* 50 MCG/ML 2 ML VIAL (100 MCG VIAL) IV PRN ×4 (09:56→10:05)
[2017-06-02 10:29] VITALS: BP 127/72
--- NOTE | 2017-06-03 01:07 | OP ---
DATE OF OPERATION: 06/02/17 - [facility] DATE OF : 78 SURGEON: Zia Stanley MD WELDING MACHINE OPERATOR ULTRASONIC: MAYURI Sampson. An pathologist assistant was needed for the procedure to aid in positioning of the arm and retraction. ANESTHESIOLOGIST: Dr. Martinez. ANESTHESIA: General. PRE-OP DIAGNOSES: 1. Right thumb carpometacarpal degenerative joint disease. 2. Right trigger thumb. POST-OP DIAGNOSES: 1. Right thumb carpometacarpal degenerative joint disease. 2. Right trigger thumb. OPERATIVE PROCEDURE: 1. Right thumb carpometacarpal fusion with autogenous local bone graft. 2. Right trigger thumb A1 vianney release. INDICATIONS: Jes has had progressive thumb pain, it has been going on for many many months to over a year. It is worse with any activity, it is relieved by rest. It is right around the CMC joint. We tried nonoperative treatments. We tried injections. All of that has failed to relieve her pain adequately. I told her the only thing left to do would be a fusion of the joint. I would recommend against a CMC arthroplasty given her degree of activity and need for use of the thumb. I would prefer the fusion. I talked to her about what that means, the risks, the benefits and she wanted to proceed. She under-stands there is risk with the fusion not fusing, risk of stiffness, risk of persistent pain. ESTIMATED BLOOD LOSS: 2 mL. COMPLICATIONS: None. FINDINGS: As expected. DESCRIPTION OF PROCEDURE: Jes was seen in the preoperative holding area. The correct side, site, and procedure were identified. We came back to the operating room, the arm was prepped and draped in the usual fashion. A time out was performed. I began by exsanguinating the arm with Esmarch and the tourniquet was inflated to 250 mmHg. I then made a 1 cm transverse incision in the palmar flexion crease of the MCP joint. Dissection was bluntly carried down and the digital nerves were retracted and the A1 vianney was released longitudinally with the 15 blade. Release was continued distally and proximally with the tenotomy scissors. Once the A1 vianney was released in its entirely, I irrigated out the wound. The skin was closed with a 4-0 nylon suture. I then made a 2 to 3 cm longitudinal incision over the dorsoradial CMC joint. Dissection was carried down just dorsal to the first dorsal compartment tendons longitudinally preserving the sensory nerve. The capsule was opened and full thickness capsular and subperiosteal flaps were raised radially and ulnarly. CMC joint was exposed. Sagittal saw was used to excise the distal end of the trapezium and the proximal end of the base of the metacarpal. Joint surfaces were then opposed. There was nice alignment, with the thumb sitting nicely abducted and a nice resting pinching position against the index finger. One central K-wire was placed for provisional stabilization. I then used the Path.Toa MemoFix staple set. The guide was used and the drill was used to create holes. The Nitinol staple was then placed in a standard fashion and then tapped down to fully seat it. I then drilled the drill holes for a second Nitinol staple, the K-wire was removed, the staple was placed and tapped into the place. This provided excellent compression. C-arm imaging was then checked. Everything was looking good. I took the bone from the piece of the base of the metacarpal that had been excised. All of the subchondral and cancellous bone was removed and packed around the fusion site as autogenous local bone graft. The capsular and periosteal flaps were then closed with 4-0 Vicryl suture. Skin was closed with 4-0 nylon suture. The operative area was infiltrated with 0.25% plain Marcaine. The wounds were dressed with Xeroform, 4x4's, sterile Webril and a thumb spica splint was placed leaving the IP joint free so that she could flex and extend the DIP joint. The tourniquet was deflated and the patient was taken to recovery room in stable condition. [id number]/[facility] #: [id number] [place]
--- NOTE | 2017-06-03 07:50 | RAD ---
INDICATION: Right thumb carpal metacarpal fusion. COMPARISON: Comparison is made with a prior x-ray study of the right wrist from May 06, 2017. TECHNIQUE: 18 seconds of intermittent fluoroscopic guidance were provided and 6 spot films of the right thumb were obtained in the operating room. FINDINGS: The films demonstrate 2 surgical nicolas within the proximal first metacarpal and trapezium bone projecting across the first carpal metacarpal joint. IMPRESSION: INTRAOPERATIVE CONTROL FILMS. CPT II Codes: 6045F
[2017-06-05] MEDS ORDERED: Scopolamine PATCH Remove* 1 NOTE MISC PATCH OFF ONE (06:42)
== END 2017-06-02 10:44 | disposition home or self-care (01) ==
LOC: OR 06:51
PROVIDERS: ATTEND Orthopaedic Surgery Hand Surgery
DX: M18.11 Unilateral primary osteoarthritis of first carpometacarpal joint, right hand (principal); M65.311 Trigger thumb, right thumb; F17.210 Nicotine dependence, cigarettes, uncomplicated; K21.9 Gastro-esophageal reflux disease without esophagitis; M10.9 Gout, unspecified
CPT/HCPCS: 76001; 81025; A9270-GY; C1713; C1776; J0690; J2001; J2250; J2270; J2405; J2704; J3010; J8540

== ENCOUNTER 2017-07-05 16:21 | Emergency (ER) | payer BC ==
[2017-07-05 16:40] VITALS: BP 138/90
--- NOTE | 2017-07-05 17:31 | UC ---
UC General HPI - HPI Summary HPI Summary: 36 yo WF c/o complex regional pain syndrome flare-up on her right arm, s/p recent surgery - release of trigger finger on thumb by Dr stanley, changed her cast twice and now her pain in right thenar eminence is 09/09 - History of Current Complaint Chief Complaint: UCUpperExtremity Stated Complaint: R ARM PAIN Time Seen by Provider: 07/05/17 16:42 Hx Last Menstrual Period: UNKNOWN - DEPO Onset/Duration: Sudden Onset Onset Severity: Moderate Current Severity: Severe Pain Intensity: 7 - Allergy/Home Medications Allergies/Adverse Reactions: Allergies Allergy/AdvReac Type Severity Reaction Status Date / Time codeine Allergy Intermediate Hives Verified 07/05/17 16:32 naproxen Allergy Intermediate Hives/Diff. Verified 07/05/17 16:32 Breathing/I tching tramadol Allergy Intermediate Hives Verified 07/05/17 16:32 Home Medications: Home Medications Dronabinol 1 cap PO BID PRN 07/05/17 [History Confirmed 07/05/17] PMH/Surg Hx/FS Hx/Imm Hx - Additional Past Medical History Additional PMH: Complex Regional Pain Syndrome Previously Healthy: Yes Other History Of: Negative For: HIV, Hepatitis B, Hepatitis C, Anticoagulant Therapy - Surgical History Surgical History: Yes Surgery Procedure, Year, and Place: Appendectomy, 2006. Breast Reduction , 2007. Tonsillectomy 1987. R wrist 07/13/2012, ligament repair. RT wrist surgery 08/2015. ulnar nerve right 2017. carpal tunnel right 2017, [facility]. carpal tunnel right wrist 10/21/16. 07/2016-ULNAR NERVE-RIGHT ARM. right carpal tunnel sx 10/2016 - Family History Known Family History: Positive: Hypertension Negative: Cardiac Disease, Diabetes, Blood Disorder - Social History Alcohol Use: Weekly Alcohol Amount: 2 per week Substance Use Type: None Smoking Status (MU): Heavy Every Day Tobacco Smoker Type: Cigarettes Amount Used/How Often: 10 per day for 20 yrs Length of Time of Smoking/Using Tobacco: Since Age 20 Have You Smoked in the Last Year: Yes Household Exposure Type: Cigarettes - Immunization History Most Recent Influenza Vaccination: [id number] Most Recent Tetanus Shot: 08/13/15 Review of Systems Constitutional: Negative Skin: Negative Eyes: Negative ENT: Negative Respiratory: Negative Cardiovascular: Negative Gastrointestinal: Negative Genitourinary: Negative Motor: Negative Neurovascular: Negative Musculoskeletal: Negative, Other: - Pain over right thenar eminence Neurological: Negative Psychological: Negative All Other Systems Reviewed And Are Negative: Yes Physical Exam Triage Information Reviewed: Yes Vital Signs: Initial Vital Signs Temp 36.8 C 07/05/17 16:34 Pulse 96 07/05/17 16:34 Resp 16 07/05/17 16:34 BP 138/90 07/05/17 16:34 Pulse Ox 100 07/05/17 16:34 Eye Exam: Normal ENT Exam: Normal Dental Exam: Normal Neck exam: Normal Neck: Positive: 1 Respiratory Exam: Normal Cardiovascular Exam: Normal Abdominal Exam: Normal Musculoskeletal: Positive: Other: - cast over forearm and proximal hand, TTP over right thenar eminence, NVI Neurological Exam: Normal Psychological Exam: Normal Skin Exam: Normal Course/Dx - Course Course Of Treatment: pt needs better pain control in light of her CRPS flare-up , will prescribe 5 more days of percocet, then f/u with Dr Stanley - Differential Dx - Multi-Symptom Provider Diagnoses: Complex Regional Pain syndrome exacerbation Discharge - Sign-Out/Discharge Documenting (check all that apply): Discharge/Admit/Transfer - Discharge Plan Condition: Stable Disposition: HOME Prescriptions: oxyCODONE/Acetamin 5/325 MG* [Percocet 5/325 TAB*] 1 tab PO Q6H PRN 5 Days #20 tab MDD 4 PRN Reason: Pain Patient Education Materials: Complex Regional Pain Syndrome (DC) Referrals: Charis Arzate PA [Primary Care Provider] - - Billing Disposition and Condition Condition: STABLE Disposition: HOME
== END 2017-07-05 17:24 | disposition home or self-care (01) ==
LOC: UCEAST 16:21
DX: G90.511 Complex regional pain syndrome I of right upper limb (principal); Z88.6 Allergy status to analgesic agent; Z88.5 Allergy status to narcotic agent; F17.210 Nicotine dependence, cigarettes, uncomplicated
CPT/HCPCS: 99212; G0463

== ENCOUNTER 2017-07-10 17:32 | Emergency (ER) | payer BC ==
[2017-07-10 17:58] VITALS: BP 132/82
--- NOTE | 2017-07-10 18:36 | UC ---
Hand/Wrist HPI - HPI Summary HPI Summary: Pt presents with c/o of right thumb pain. Pt had right thumb fusion [place] in June by Dr. Stanley [place] [facility] Pt was seen by Dr. Stanley on 07/04/17 and had cast changed. Pt then was seen at [facility] for Uncontrolled right hand/ wrist pain. Pt states that she has regional pain syndrome in right upper extremity. Pt is followed by Elva Goodman NP for pain management. Pt states that her pain management contract allow for outside prescriptions of narcotics for break through pain. Istop was reviewed and I discussed this with pt. - History Of Current Complaint Chief Complaint: UCUpperExtremity Stated Complaint: RIGHT ARM PAIN Time Seen by Provider: 07/10/17 17:40 Hx Obtained From: Patient Hx Last Menstrual Period: IS ON DEPO, DOES NOT HAVE REG PERIODS ?: No Onset/Duration: Sudden Onset, Still Present Severity Initially: Mild Severity Currently: Moderate Pain Intensity: 7 Character Of Pain: Sharp Alleviating Factor(s): Nothing Associated Signs And Symptoms: Positive: Negative Related History: Similar Episode/Dx As - regional pain syndrome, Dominant Hand Right - Risk Factors Compartment Syndrome Risk Factors: Pain - Allergies/Home Medications Allergies/Adverse Reactions: Allergies Allergy/AdvReac Type Severity Reaction Status Date / Time codeine Allergy Intermediate Hives Verified 07/10/17 17:46 naproxen Allergy Intermediate Hives/Diff. Verified 07/10/17 17:46 Breathing/I tching tramadol Allergy Intermediate Hives Verified 07/10/17 17:46 Home Medications: Home Medications medroxyPROGESTERone ACETATE* [DEPO-Provera*] 150 mg IM 07/10/17 [History] PMH/Surg Hx/FS Hx/Imm Hx Previously Healthy: Yes Other History Of: Negative For: HIV, Hepatitis B, Hepatitis C, Anticoagulant Therapy - Surgical History Surgical History: Yes Surgery Procedure, Year, and Place: Appendectomy, 2006. Breast Reduction , 2007. Tonsillectomy 1987. R wrist 07/13/2012, ligament repair. RT wrist surgery 08/2015. ulnar nerve right 2016. carpal tunnel right 2016, [facility] [place]. RIGHT THUMB SURGERY 06/02/17. carpal tunnel right wrist 10/21/16. 07/2016-ULNAR NERVE- RIGHT ARM. right carpal tunnel sx 10/2016 - Family History Known Family History: Positive: Hypertension Negative: Cardiac Disease, Diabetes, Blood Disorder - Social History Occupation: Employed Full-time Lives: With Family Alcohol Use: Weekly Alcohol Amount: 2 per week Substance Use Type: None Smoking Status (MU): Heavy Every Day Tobacco Smoker Type: Cigarettes Amount Used/How Often: 10 per day for 20 yrs Length of Time of Smoking/Using Tobacco: Since Age 20 Have You Smoked in the Last Year: Yes Household Exposure Type: Cigarettes - Immunization History Most Recent Influenza Vaccination: [id number] Most Recent Tetanus Shot: 08/13/15 Review of Systems Constitutional: Negative Skin: Negative Eyes: Negative ENT: Negative Respiratory: Negative Cardiovascular: Negative Gastrointestinal: Negative Genitourinary: Negative Motor: Decreased ROM - right wrist, in a cast Neurovascular: Negative Musculoskeletal: Arthralgia, Decreased ROM - right wrist and thumb, Myalgia Neurological: Negative Psychological: Negative Is Patient Immunocompromised?: No All Other Systems Reviewed And Are Negative: Yes Physical Exam Triage Information Reviewed: Yes Appearance: Well-Appearing Vital Signs: Initial Vital Signs Temp 97.8 F 07/10/17 17:49 Pulse 80 07/10/17 17:49 Resp 18 07/10/17 17:49 BP 132/82 07/10/17 17:49 Pulse Ox 100 07/10/17 17:49 Vital Signs Reviewed: Yes Eye Exam: Normal ENT Exam: Normal Neck exam: Normal Respiratory: Positive: No respiratory distress Musculoskeletal Exam: Normal, Other - right wrist in cast, right finger tips cool to touch, pink, finger width of space between cast and upper extremity Neurological Exam: Normal Psychological Exam: Normal Skin Exam: Normal Hand/Wrist Course/Dx - Course Course Of Treatment: I discussed with the patient the need to have a current pain management contract that is UTD with her. I also explained that I would no longer supply narcotics to her as she is under a pain management contract. Istop print out should be available to review in pt chart. Pt verbalized understanding and agreed to plan of care. - Differential Dx/Diagnosis Differential Diagnosis/HQI/PQRI: Other - pain. Provider Diagnoses: right hand pain. Discharge - Sign-Out/Discharge Documenting (check all that apply): Discharge/Admit/Transfer - Discharge Plan Condition: Stable Disposition: HOME Prescriptions: Hydrocodone/Acetaminophen [Hydrocodone-Acetamin 5-325 mg] 1 each PO Q6H PRN #8 tablet MDD 4 PRN Reason: Pain Patient Education Materials: Pain Management (ED) Referrals: Elva Goodman NP [Nurse Practitioner] - As Soon As Possible Charis Arzate PA [Primary Care Provider] - Zia Stanley MD [Medical Doctor] - Additional Instructions: Please follow up with your orthopedic provider and your pain management provider as soon as possible. Please note that we can no longer provide a narcotic prescription for you as you are under the care of a pain management provider. - Billing Disposition and Condition Condition: STABLE Disposition: HOME
== END 2017-07-10 18:49 | disposition home or self-care (01) ==
LOC: UCCORT 17:32
DX: M79.641 Pain in right hand (principal); F17.210 Nicotine dependence, cigarettes, uncomplicated; Z88.6 Allergy status to analgesic agent; Z88.5 Allergy status to narcotic agent
CPT/HCPCS: 99212; G0463

== ENCOUNTER 2017-10-30 13:53 | Day surgery (SDC) | payer BC ==
[~2017-10-30 13:53] MED LIST changes: +Dexamethasone IV* 4 MG/ML 1 ML (4 MG) IV SLOW PU ONE; -Dexamethasone TAB* 4 MG PO ONE; -DiMENhydriNATE IV* 50 MG/ML VIAL IV PUSH PRN; +Levalbuterol 0.63MG/3ML NEB* UNIT OF USE INH ONE; -Morphine INJ* 2 MG/ML 1 ML CARPUJECT IV PRN; -Naloxone* 0.4 MG/ML 1 ML VIAL IV PRN; -PROCHLORPERAZINE INJ 5 MG/ML 2 ML VIAL IV PRN; -Scopolamine 1.5 mg* PATCH TRANSDERM PRN
[2017-10-30] MEDS ORDERED: Dexamethasone IV* 4 MG/ML 1 ML (4 MG) ONE (14:41)
[2017-10-30] MEDS ORDERED: Famotidine IV* 10 MG/ML 2 ML (20 mg) ONE ×2 (14:41→14:43)
[2017-10-30] MEDS ORDERED: Levalbuterol 1.25MG/0.5ML NEB ONE (14:41)
[2017-10-30] MEDS ORDERED: ceFAZolin 2 GM PREMIX in ORs 2 GM/50 ML BAG IVPB ONE (14:43)
[2017-10-30] MEDS ORDERED: Midazolam* 1 MG/ML 5 ML VIAL (5 MG) ONE (16:37)
[2017-10-30] MEDS ORDERED: fentaNYL* 50 MCG/ML 5 ML VIAL (250 MCG VIAL) ONE (16:37)
[2017-10-30] MEDS ORDERED: Lidocaine 2% PF * 5 ML VIAL ONE (16:38)
[2017-10-30] MEDS ORDERED: Propofol* 10 MG/ML 20 ML BTL IV PUSH ONE (16:38)
[2017-10-30] MEDS ORDERED: Ketorolac INJ* 30 MG/ML 1 ML VIAL ONE (16:38)
[2017-10-30] MEDS ORDERED: Ondansetron INJ* 2 MG/ML VIAL ONE (16:38)
[2017-10-30] MEDS ORDERED: oxyCODONE/Acetamin 5/325 MG* TAB PO PRN (16:56)
[2017-10-30] MEDS ORDERED: fentaNYL* 50 MCG/ML 2 ML VIAL (100 MCG VIAL) IV PRN (16:56)
[2017-10-30] MEDS ORDERED: Naloxone* 0.4 MG/ML 1 ML VIAL IV PRN (16:56)
[2017-10-30] MEDS ORDERED: HYDROmorphone INJ* 0.5 MG/0.5 ML SYRINGE IV PRN (16:56)
[2017-10-30] MEDS ORDERED: DiMENhydriNATE IV* 50 MG/ML VIAL IV PUSH PRN (16:56)
[2017-10-30] MEDS ORDERED: Ondansetron INJ* 2 MG/ML VIAL IV PRN (16:56)
[2017-10-30] MEDS ORDERED: ROPIVACAINE 5 MG/ML 30 ML BTL (0.5%) ONE (17:02)
[2017-10-30] MEDS ORDERED: fentaNYL* 50 MCG/ML 2 ML VIAL (100 MCG VIAL) ONE ×2 (17:29→18:18)
[2017-10-30 19:36] VITALS: BP 134/82
--- NOTE | 2017-11-13 17:45 | OP ---
OPERATIVE REPORT: DATE OF OPERATION: 10/30/17 DATE OF : 78 SURGEON: Zia Stanley MD CORDWOOD CUTTER: MAYURI Sampson An executive assistant to general counsel was needed for the entirety of the procedure to aid in positioning of the arm and retraction. ANESTHESIOLOGIST: Adrian Molina MD ANESTHESIA: General. PRE-OP DIAGNOSES: 1. Right first carpometacarpal fusion nonunion. 2. Right thumb metacarpophalangeal joint hyperextension laxity with volar plate insufficiency. 3. Retained hardware, right thumb carpometacarpal joint fusion. POST-OP DIAGNOSES: 1. Right first carpometacarpal fusion nonunion. 2. Right thumb metacarpophalangeal joint hyperextension laxity with volar plate insufficiency. 3. Retained hardware, right thumb carpometacarpal joint fusion. OPERATIVE PROCEDURE: 1. Right thumb carpometacarpal arthroplasty with trapeziectomy. 2. Distally based split flexor carpi radialis tendon transfer for thumb suspension and tendon interposition. 3. Removal of deep implants including 2 nicolas, right thumb CMC joint. 4. Right thumb metacarpophalangeal joint volar capsulodesis. INDICATIONS: Jes has undergone prior carpometacarpal fusion that has gone on to nonunion which is severely painful. We talked about her treatment options. I did recommend conversion to a carpometacarpal arthroplasty with MCP joint capsulodesis. She understands the risk of persistent pain and she would like to proceed. ESTIMATED BLOOD LOSS: 2 mL. COMPLICATIONS: None. FINDINGS: See above and below. DESCRIPTION OF PROCEDURE: Jes was seen in the preoperative holding area. The correct site, side, and procedures were identified. We came back to the operating room where the arm was prepped and draped in the usual fashion. A time-out was performed. I exsanguinated the arm with an Esmarch and the tourniquet was inflated to 250 mmHg. I then re-opened her prior longitudinal incision over the dorsum of the CMC joint. Full-thickness flaps were raised taking care to preserve the dorsal traversing sensory nerves. The two compression nicolas were noted. An osteotome was used to remove the first and then the second staple. These came out uneventfully. After the hardware was removed, I turned my attention to developing the nonunion site. An osteotome was placed in the area of the nonunion and then tapped gently opening up the nonunion. I then circumferentially released the soft tissue off the trapezium and this was excised in its entirety. All the bony spurs surrounding the metacarpal base were excised. I then used sequentially larger drill bits to create a bone tunnel from the dorsal radial aspect to the thumb metacarpal base exiting out the volar ulnar aspect near the base of the second metacarpal. Attention was then turned to the tendon transfer. I made a 1-cm transverse incision over the distal FCR tendon. The tendon was delivered up into the wound , it was split longitudinally and a 26-gauge wire was passed into the tendon split. I then made 2 more transverse incisions about 7 or 8 cm proximal to the last. The sheath was released along the FCR tendon. The wire was then pulled into the more proximal wound releasing the tendon at the musculotendinous junction. The muscular remnants were removed off the free end of the tendon. The tendon was sewed with 3- 0 Ethibond suture to prevent fraying during passage of the tendon transfer. The split end was then pulled down into the metacarpal base wound. The split was completed down to the base of the second metacarpal. Free end was passed through the bone tunnel back around the intact limb of the FCR tendon and then tensioned, while the tendon transfer was secured with 3-0 Ethibond [id number] sutures, the first grabbing off the limbs of the tendon transfer and the second two sewing intact limb to intact limb. At this point, the remainder of the tendon was balled up and placed as an interposition. The scaphotrapezoid joint had been examined and looked healthy. The wounds were then closed with 4-0 nylon suture after the capsule had been closed with 3-0 Ethibond suture. Lastly, I made a V-shaped incision over the MCP joint. Full-thickness flaps were raised off the tendon sheath. The A1 vianney was released. The tendons were retracted out of the way. I then released the volar plate as a distally based U- shaped flap. Two Mini Mitek suture anchors were then placed in the metacarpal neck just proximal to the articular surface of the metacarpal head. The 2-0 Ethibond suture was used to advance the volar plate down so that the MCP joint came to 10 degrees of flexion and then extended no further. Once I had tied down the volar plate, there was no more hyperextension laxity. Everything was looking good. After the wound was irrigated, I closed the skin with 4-0 nylon suture. The wounds were then dressed. A thumb spica splint was placed holding the MCP joint in slight flexion and the first webspace open. Tourniquet was deflated and the hand pinked up immediately. She was then taken to the recovery room in stable condition. [id number]/[facility] #: [id number] [place]
== END 2017-10-30 19:51 | disposition home or self-care (01) ==
LOC: OREAST 13:53
PROVIDERS: ATTEND Orthopaedic Surgery Hand Surgery
DX: M96.0 Pseudarthrosis after fusion or arthrodesis (principal); T84.84XA Pain due to internal orthopedic prosthetic devices, implants and grafts, initial encounter; Z72.0 Tobacco use; J45.909 Unspecified asthma, uncomplicated; K21.9 Gastro-esophageal reflux disease without esophagitis; Z87.442 Personal history of urinary calculi; G90.50 Complex regional pain syndrome I, unspecified; Y83.1 Surgical operation with implant of artificial internal device as the cause of abnormal reaction of the patient, or of later complication, without mention of misadventure at the time of the procedure
CPT/HCPCS: 81025; 88300; 88304; 88311; A9270-GY; C1713; J0690; J1100; J1885; J2250; J2405; J2704; J2795; J3010

== ENCOUNTER 2017-11-16 16:52 | Emergency (ER) | payer BC ==
--- OUTSIDE RECORDS SUMMARY | 2017-11-16 17:05 | XMS REPORT ---
:1980 External Reference #:[id number] Author Organization [facility] Address [address] [place] [address] [place] [address] Phone [phone] Care Team Providers Name Role Phone Rei Arzate RPA Primary Care Physician Unavailable Payers Type Date Identification Numbers Payment Provider Subscriber Commercial Policy Number: [id number] [employer] Abhay Landeros PayID: [id number] [address] [address] [place] [address] Problems Date Description Provider Status Onset: 04/17/2016 Localized, primary osteoarthritis of the Zia Stanley MD Active hand Onset: 04/17/2016 Medial epicondylitis Zia Stanley MD Active Onset: 04/17/2016 Carpal tunnel syndrome of right wrist Zia Stanley MD Active Onset: 04/17/2016 Lesion of ulnar nerve Zia Stanley MD Active Onset: 10/10/2015 Migraine with typical aura Trish Phipps MD Active Family History Date Family Member(s) Problem(s) Comments General Hypertension General Stroke Mother Asthma Mother Hypertension Mother Hypercholesterolemia First Sister Migraine Second Sister Migraine Social History Type Date Description Comments Marital Status Lives With 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 No issues taken Advil 04/17/2016 Tylenol III active 04/17/2016 Aleve active Medications Medication Date Status Form Strength Qnty SIG Indications Ordering Provider Hydrocodone-Aceta 11/12/ Active Tablets 5-325mg 20tab 1 or 2 Zia schumacher 2018 s tabs by allen Stanley MD every 6-8 hours as needed for pain Omeprazole / Active Capsules DR 40mg 1 by Unknown 0000 mouth every day Advil / Active Capsules 200mg 2-3 tabs Unknown 0000 po as needed Hydrocodone-Aceta 10/30/ Hx Tablets 5-325mg 20tab 1 or 2 Zia schumacher 2017 - s tabs by Jaden, 11/11/ mouth 2018 every 6-8 hours as needed for pain Hydrocodone-Aceta 06/06/ Hx Tablets 5-325mg 30tab 1-2 tab Zia schumacher 2017 - s by mouth Jaden, 07/03/ every MD 2017 6-8 hours as needed for pain [place] 07/01/ Hx Tablets 5-325mg 10tab 1 tab by Zia 2016 - s allen Stanley, 11/14/ every 4 MD 2017 - 6 hours as needed pain Cyclobenzaprine 03/26/ Hx Tablets 10mg 30tab 1 by G56.21 Campos M HCL 2017 - s mouth Marson, 11/14/ every 8 MD 2017 hours as needed spasm Lyrica / Hx Capsules 150mg 1 by Unknown 0000 - mouth 10/13/ twice a 2017 day Depo-Provera / Hx Suspension 150mg/ml every 3 Unknown 0000 - months 2017 [place] /00/ Hx Tablets 5-325mg 1 by Unknown 0000 - mouth 03/25/ every 12 2016 hours as needed Albuterol Sulfate / Hx Powder 2 puffs Unknown 0000 - every 6 11/11/ hours as 2018 needed Vicodin 00/ Hx Tablets 5-300mg take 1 Unknown 0000 - by mouth 11/14/ q hs prn 2016 Keflex /00/ Hx Unknown 0000 - 2017 Hydrocodone-Aceta 00/00/ Hx Tablets 5-325mg Take One Unknown minophen 0000 - Tablet 07/03/ By Mouth 2017 Two Times A Day For 28 Days as Needed For Olga Nucynta ER / Hx Tablets ER 150mg Take One Unknown 0000 - 12HR Tablet 10/13/ By Mouth 2017 Twice A Day For 28 Days Maximum Daily Dose Hydrocodone-Aceta 00/00/ Hx Tablets 5-325mg 8tabs take one Zia minophen 0000 - tablet Jaden, 10/13/ by allen ANTHONY 2017 every 6 hours as needed for pain. Medications Administered in Office Medication Date Status Form Strength Qnty SIG Indications Ordering Provider Lb 3 Administered Injection Iza mg and 3mg 018 MD Lb Stanley 3 Administered Injection Zia mg and 3mg 018 MD Jaden No Injection Administered Injection Delmy Debi Hoffman 3 Administered Injection Zia mg and 3mg 017 MD Lb Stanley 3 Administered Injection Zia mg and 3mg 017 MD Jaden Vital Signs Date Vital Result Comment 11/12/2017 Heart Rate 60 /min BP Systolic 140 mmHg BP Diastolic 92 mmHg Body Temperature 98.3 F Pain Level 8 10/17/2017 Height 69 inches 5'9" Weight 185.00 lb Heart Rate 68 /min BP Systolic Sitting 126 mmHg BP Diastolic Sitting 74 mmHg Respiratory Rate 16 /min Pain Level 7 BMI (Body Mass Index) 27.3 kg/m2 10/10/2017 Height 69 inches 5'9" Weight 185.00 lb BP Systolic Sitting 126 mmHg BP Diastolic Sitting 72 mmHg Respiratory Rate 17 /min Pain Level 7 BMI (Body Mass Index) 27.3 kg/m2 08/26/2017 Height 69 inches 5'9" Weight 185.00 lb Heart Rate 70 /min BP Systolic Sitting 116 mmHg BP Diastolic Sitting 68 mmHg Respiratory Rate 16 /min Pain Level 7 BMI (Body Mass Index) 27.3 kg/m2 07/22/2017 Height 69 inches 5'9" Weight 185.00 lb Heart Rate 68 /min BP Systolic Sitting 118 mmHg BP Diastolic Sitting 70 mmHg Respiratory Rate 16 /min Pain Level 4 BMI (Body Mass Index) 27.3 kg/m2 07/11/2017 Height 69 inches 5'9" Heart Rate 68 /min BP Systolic 130 mmHg BP Diastolic 82 mmHg Respiratory Rate 16 /min Body Temperature 98.0 F Pain Level 3 07/04/2017 Height 69 inches 5'9" Heart Rate 87 /min BP Systolic 118 mmHg BP Diastolic 88 mmHg Respiratory Rate 12 /min no respiratory difficulties Pain Level 8 O2 % BldC Oximetry 97 % 07/01/2017 Height 69 inches 5'9" Weight 186.00 lb BP Systolic Sitting 116 mmHg BP Diastolic Sitting 66 mmHg Respiratory Rate 16 /min Pain Level 5 BMI (Body Mass Index) 27.5 kg/m2 06/17/2017 Height 69 inches 5'9" Weight 186.00 lb BP Systolic Sitting 106 mmHg BP Diastolic Sitting 68 mmHg Respiratory Rate 16 /min Pain Level 5 BMI (Body Mass Index) 27.5 kg/m2 06/06/2017 Height 69 inches 5'9" Weight 186.00 lb Heart Rate 97 /min Respiratory Rate 15 /min Body Temperature 97.6 F Pain Level 10 BMI (Body Mass Index) 27.5 kg/m2 05/20/2017 Height 69 inches 5'9" Weight 186.00 lb Heart Rate 84 /min BP Systolic Sitting 124 mmHg BP Diastolic Sitting 80 mmHg Respiratory Rate 16 /min Pain Level 6 BMI (Body Mass Index) 27.5 kg/m2 05/06/2017 Height 69 inches 5'9" Weight 186.00 lb Heart Rate 74 /min Respiratory Rate 16 /min Body Temperature 98.6 F Pain Level 6 BMI (Body Mass Index) 27.5 kg/m2 04/23/2017 Height 69 inches 5'9" Body Temperature 97.6 F Pain Level 5 11/13/2016 Height 69 inches 5'9" Weight 186.00 lb BP Systolic 124 mmHg BP Diastolic 64 mmHg Body Temperature 97.4 F BMI (Body Mass Index) 27.5 kg/m2 10/08/2016 Height 69 inches 5'9" Weight 193.00 lb Heart Rate 87 /min BP Systolic 114 mmHg BP Diastolic 71 mmHg Body Temperature 97.2 F BMI (Body Mass Index) 28.5 kg/m2 07/12/2016 Height 69 inches 5'9" Weight 193.00 lb Heart Rate 88 /min BP Systolic Sitting 118 mmHg BP Diastolic Sitting 84 mmHg Respiratory Rate 16 /min Pain Level 3 BMI (Body Mass Index) 28.5 kg/m2 07/05/2016 Height 69 inches 5'9" Weight 194.00 lb Respiratory Rate 16 /min Pain Level 8 BMI (Body Mass Index) 28.6 kg/m2 06/25/2016 Height 69 inches 5'9" Weight 193.00 lb Heart Rate 72 /min BP Systolic Sitting 122 mmHg BP Diastolic Sitting 68 mmHg Respiratory Rate 16 /min Pain Level 6 advil BMI (Body Mass Index) 28.5 kg/m2 04/17/2016 Height 69 inches 5'9" Weight 193.00 lb Heart Rate 89 /min BP Systolic 156 mmHg BP Diastolic 101 mmHg BMI (Body Mass Index) 28.5 kg/m2 03/26/2016 Height 69 inches 5'9" Weight 195.12 lb Heart Rate 87 /min BP Systolic Sitting 124 mmHg BP Diastolic Sitting 82 mmHg Pain Level 6 O2 % BldC Oximetry 98 % BMI (Body Mass Index) 28.8 kg/m2 10/10/2015 Height 69 inches 5'9" Weight 191.00 lb Heart Rate 88 /min BP Systolic Lying Down 110 mmHg BP Diastolic Lying Down 80 mmHg Respiratory Rate 17 /min BMI (Body Mass Index) 28.2 kg/m2 Results Test Date Test Result H/L Range Note Laboratory test 10/30/2017 Surgical Pathology SEE RESULT BELOW 1, 2 finding 1 [id number] 2 SEE RESULT BELOW Name: JES LANDEROS : [address]: Zia Stanley MD Acct: [id number] Unit: [id number] AGE: 36 Location: [facility] Re10/30/17 SEX: F Status: DEP SDC SPEC: [id number] FLACO: 10/30/17-17[address] [facility] [address]: Zia Stanley MD REQ: [id number] RECD: 10/31/17-1106 STATUS: SOUT _ ORDERED: Decal, LEVEL 1, LEVEL 3 COMMENTS: [id number] FINAL DIAGNOSIS 1. Hand, right, hardware removal: -- Foreign body (orthopedic hardware) (gross diagnosis) 2. Bone and cartilage, right trapezium, excision: -- Severe degenerative osteoarthritic changes. PRE-OPERATIVE DIAGNOSIS Right hand painful hardware ? osteoarthritis of first carpometacarpal joint right hand GROSS DESCRIPTION 1. The specimen is received fresh labeled, Right Hand Hardware Removal; Two [place], and consists of two silver curved metallic fragments averaging 2.9 x 0.1 x 0.1 cm. Per established hospital medical staff protocol, no tissue is submitted. Gross only. 2. The specimen is received in formalin labeled, Right Trapezium, and consists of a 3.4 x 2.8 by up to 1.0 cm bejarano-pink to yellow irregular bone fragment. Jewelry Mold Maker sections, one cassette following decalcification. Signed by and Reported on: Edwar Sahu MD 08/18 1551 END OF REPORT DEPARTMENT OF PATHOLOGY, [address] [place] [address] Edwar Sahu M.D. Director [facility] # [id number] Procedures Date CPT Code Description Status 11/12/2017 03254 Short Arm Splint Application Completed 08/26/2017 34810 Rad Exam; Hand Comp Completed 07/11/2017 Short Arm Cast Application Completed 07/04/2017 Short Arm Cast Application Completed 07/01/2017 15977 Short Arm Cast Application Completed 06/17/2017 79690 Short Arm Cast Application Completed 06/06/2017 00467 Short Arm Cast Application Completed 06/02/2017 75479 Arthrodesis CMC JT Thumb W/ Autograft Completed 06/02/2017 14766 Arthrodesis CMC JT Thumb W/ Autograft Completed 06/02/2017 86820 Trigger Finger Release Incision / Tendon Sheath Completed Incision 05/20/2017 49801 Inject Tendon Sheath Or Ligament Aponeurosis Eg Plantar Completed Fascia 05/06/2017 37898 Inject Tendon Sheath Or Ligament Aponeurosis Eg Plantar Completed Fascia 04/23/2017 77467 Inc & Removal Foreign Body Subcutaneous Tissues Completed 11/13/2016 54503 Inject Tendon Sheath Or Ligament Aponeurosis Eg Plantar Completed Fascia 10/21/2016 50918 Carpal Tunnel Release Completed 10/21/2016 92676 Carpal Tunnel Release Completed 07/01/2016 50501 Neuroplasty &/Or Transposition; Ulnar Nerve AT Elbow Completed 07/01/2016 92221 Neuroplasty &/Or Transposition; Ulnar Nerve AT Elbow Completed 06/25/2016 86616 X-Ray Spine Cervical Four Views Completed 06/04/2016 69690 Nerve Conduction 03-04 Studies Completed 06/04/2016 79752 Needle Electromyography Complete, Five Or More Muscles Completed Studied 04/17/2016 13326 Inject/Drain Joint/Bursa Small W/O US Completed 03/26/2016 98326 Rad Exam; Elbow, Comp Completed 10/19/2015 83182 EEG Recording Awake & Asleep Completed Encounters Type Date Location Provider CPT E/M Dx Office Visit 10/17/2017 [facility] [place] [address] M18.11 8:15a [employer] [facility] [place] Office Visit 10/10/2017 [facility] [place] [address] M18.11 8:15a [facility] [employer] [place] Office Visit 05/20/2017 [facility] [place] [address] M18.11 10:30a [employer] [place] M65.311 Office Visit 05/06/2017 1:45p [facility] [place] [address] M65.4 [facility] S63.591A Office Visit 10/08/2016 2:45p [facility] [place] [address] G56.21 [facility] G56.01 Office Visit 06/25/2016 9:15a [facility] [place] [address] G56.21 [facility] [place] Office Visit 04/17/2016 2:45p [facility] [place] [address] G56.21 [facility] G56.01 M77.01 M18.11 Office Visit 03/26/2016 9:00a [facility] [place] [address] G56.21 [facility] [place] G56.01 Office Visit 10/10/2015 2:00p [facility] [place] [address] G43.109 [facility] R20.0 Plan of Care Future Appointment(s):12/10/2017 11:15 am - Zia Stanley MD at [facility]11/12/2017 - Zia Stanley MDM18.11 Unil primary osteoarth of first carpometacarp joint, r handNew Therapy:Physical Therapy
[2017-11-16 19:02] LABS: ABS Basophils 0.1 10^3/ul (0-0.2); ABS Eosinophils 0 10^3/ul (0-0.6); ABS Monocytes 0.5 10^3/ul (0-0.8); ABS Neutrophils 4.6 10^3/ul (1.5-7.7); ABS Nucleated RBC 0 10^3/ul; Eosinophil % 0.4 % (0-6); Hematocrit 40 % (35-47); Hemoglobin 13.3 g/dl (12.0-16.0); Lymphocyte % 27.8 % (25-47); Mean Corpuscular HGB Conc 34 g/dl (31-36); Mean Corpuscular Hemoglobin 32 pg (27-31); Mean Corpuscular Volume 95 fL (80-97); Mean Platelet Volume 10.2 um3 (7.4-10.4); Nucleated Red Blood Cells % 0.1; Platelet Count 243 10^3/ul (150-450); Red Blood Count 4.15 10^6/ul (4.00-5.40); Red Cell Distribution Width 13 % (10.5-15); White Blood Count 7.2 10^3/ul (3.5-10.8)
[2017-11-16] MEDS ORDERED: HYDROcodone/ACETAMIN 5-325 MG* 1 TAB PO ONE (19:36)
--- NOTE | 2017-11-16 19:43 | ED ---
Upper Extremity Pain - HPI Summary HPI Summary: Patient is a 37-year-old female presenting to the ED 17 days s/p Rt thumb carpometacarpal trapeziectomy with Dr. Stanley. She endorses pain to the right elbow extending through the bicep up into the shoulder joint as well as the axilla area since approximately 4 AM. History of complex regional pain syndrome and states this feels similar. She states she awakened with "red blotchy areas" to the upper arm and was concerned for an infection. She states the arm has never had an infection in the past and she denies any history of DVTs. She has been taking hydrocodone with good relief, however she is out of this medication. She denies any fevers, sweats, chills. - History of Current Complaint Chief Complaint: EDExtremityUpper Stated Complaint: RT ARM PAIN Time Seen by Provider: 11/16/17 18:06 Hx Obtained From: Patient Hx Last Menstrual Period: 11/03/17 Mechanism Of Injury: Other - none Onset/Duration: Started Hours Ago Timing: Constant Severity Initially: Severe Severity Currently: Severe Pain Location: Arm - upper, Elbow Character: Aching - and stabbing Aggravating Factor(s): Movement, Other - palpation Alleviating Factor(s): Rest Associated Signs & Symptoms: Negative: Swelling, Redness, Bruising, Numbness/ Tingling, Diaphoresis, Nausea, Vomiting Related History: Dominant Hand Right - Risk Factors Non-Orthopedic Risk Factor: Negative DVT Risk Factors: Recent Surgery - 17 days ago Septic Arthritis Risk Factor: Negative - Allergies/Home Medications Allergies/Adverse Reactions: Allergies Allergy/AdvReac Type Severity Reaction Status Date / Time codeine Allergy Intermediate Hives Verified 11/16/17 16:56 naproxen Allergy Intermediate Hives/Diff. Verified 11/16/17 16:56 Breathing/I tching tramadol Allergy Intermediate Hives Verified 11/16/17 16:56 PMH/Surg Hx/FS Hx/Imm Hx Previously Healthy: Yes Endocrine/Hematology History: Reports: Hx Thyroid Disease - Graves Disease ( "borderline"). Denies: Hx Anticoagulant Therapy, Hx Diabetes Cardiovascular History: Denies: Hx Congestive Heart Failure, Hx Deep Vein Thrombosis, Hx Hypertension , Hx Myocardial Infarction, Hx Pacemaker/ICD Respiratory History: Reports: Hx Asthma - PRN INHALER, Hx Chronic Bronchitis, Hx Seasonal Allergies Denies: Hx Chronic Obstructive Pulmonary Disease (COPD), Hx Lung Cancer, Hx Pneumonia, Hx Pulmonary Embolism, Other Respiratory Problems/Disorders GI History: Reports: Hx Gastroesophageal Reflux Disease Denies: Hx Gall Bladder Disease, Hx Gastrointestinal Bleed, Hx Ulcer, Hx Urosepsis, Other GI Disorders History: Reports: Hx Kidney Stones - february 2016 none since Denies: Hx Renal Disease Musculoskeletal History: Reports: Hx Arthritis - RIGHT HAND, Hx Gout, Hx Tendonitis - right arm Sensory History: Reports: Hx Contacts or Glasses - INSTRUCTS GIVEN Denies: Hx Hearing Aid Opthamlomology History: Reports: Hx Contacts or Glasses - INSTRUCTS GIVEN Neurological History: Denies: Hx Dementia, Hx Migraine, Hx Seizures, Hx Transient Ischemic Attacks (TIA), Other Neuro Impairments/Disorders Psychiatric History: Denies: Hx Anxiety, Hx Depression, Hx Panic Disorder, Hx Schizophrenia, Hx Bipolar Disorder - Surgical History Surgery Procedure, Year, and Place: Appendectomy, 2006. Breast Reduction , 2007. Tonsillectomy 1987. R wrist 07/13/2012, ligament repair. RT wrist surgery 08/2015. right wrist surgery 06/18. ulnar nerve right 2017. carpal tunnel right 2017, [facility]. RIGHT THUMB SURGERY 06/02/17. carpal tunnel right wrist 10/21/16. 07/2016-ULNAR NERVE-RIGHT ARM. right carpal tunnel sx 10/2016 Hx Anesthesia Reactions: No - Immunization History Hx Pertussis Vaccination: No Immunizations Up to Date: Yes Infectious Disease History: No Infectious Disease History: Reports: Hx Shingles Denies: Hx Clostridium Difficile, Hx Hepatitis, Hx Human Immunodeficiency Virus (HIV), Hx of Known/Suspected MRSA, Hx Tuberculosis, Hx Known/Suspected VRE , Hx Known/Suspected VRSA, History Other Infectious Disease, Traveled Outside the [place] in Last 30 Days - Family History Known Family History: Positive: Hypertension Negative: Cardiac Disease, Diabetes, Blood Disorder - Social History Occupation: Employed Full-time Lives: With Family Alcohol Use: Occasionally Alcohol Amount: 2 per week Hx Substance Use: No Substance Use Type: Reports: None Hx Tobacco Use: Yes Smoking Status (MU): Heavy Every Day Tobacco Smoker Type: Cigarettes Amount Used/How Often: 10 per day X 15 yrs Length of Time of Smoking/Using Tobacco: Since Age 20 Have You Smoked in the Last Year: Yes Review of Systems Constitutional: Negative Negative: Fever, Chills, Fatigue, Skin Diaphoresis Negative: Palpitations, Chest Pain Negative: Shortness Of Breath, Cough Genitourinary: Negative Positive: no symptoms reported, see HPI Positive: Myalgia. Negative: Arthralgia Psychological: Normal All Other Systems Reviewed And Are Negative: Yes Physical Exam Triage Information Reviewed: Yes Vital Signs On Initial Exam: Initial Vitals Temp Pulse Resp BP Pulse Ox 97.8 F 111 16 132/103 96 11/16/17 16:56 11/16/17 16:56 11/16/17 16:56 11/16/17 16:56 11/16/17 16:56 Vital Signs Reviewed: Yes Appearance: Positive: Well-Appearing, Well-Nourished Skin: Positive: Skin Color Reflects Adequate Perfusion Head/Face: Positive: Normal Head/Face Inspection Eyes: Positive: EOMI, ANKITA, Conjunctiva Clear Neck: Positive: Supple, No Lymphadenopathy Respiratory/Lung Sounds: Positive: Clear to Auscultation, Breath Sounds Present Cardiovascular: Positive: RRR, Pulses are Symmetrical in both Upper and Lower Extremities Musculoskeletal: Positive: Pain @, Dom Sign Left - elbow through shoulder with axillary involvement Neurological: Positive: Speech Normal Psychiatric: Positive: Normal, Affect/Mood Appropriate AVPU Assessment: Alert Diagnostics - Vital Signs Vital Signs Temp Pulse Resp BP Pulse Ox 11/16/17 16:56 97.8 F 111 16 132/103 96 - Laboratory Lab Results: Lab Results 11/16/17 11/16/17 Range/Units 18:54 18:54 WBC 7.2 (3.5-10.8) 10^3/ul RBC 4.15 (4.00-5.40) 10^6/ul Hgb 13.3 (12.0-16.0) g/dl Hct 40 (35-47) % MCV 95 (80-97) fL MCH 32 H (27-31) pg MCHC 34 (31-36) g/dl RDW 13 (10.5-15) % Plt Count 243 (150-450) 10^3/ul MPV 10.2 (7.4-10.4) um3 Neut % (Auto) 63.9 (38-83) % Lymph % (Auto) 27.8 (25-47) % [place] % (Auto) 6.9 (0-7) % Eos % (Auto) 0.4 (0-6) % Baso % (Auto) 1.0 (0-2) % Absolute Neuts (auto) 4.6 (1.5-7.7) 10^3/ul Absolute Lymphs (auto) 2.0 (1.0-4.8) 10^3/ul Absolute Monos (auto) 0.5 (0-0.8) 10^3/ul Absolute Eos (auto) 0 (0-0.6) 10^3/ul Absolute Basos (auto) 0.1 (0-0.2) 10^3/ul Absolute Nucleated RBC 0 10^3/ul Nucleated RBC % 0.1 ESR Pending C-Reactive Protein 2.36 (<8.01) mg/L Result Diagrams: 11/16/17 18:54 Lab Statement: Any lab studies that have been ordered have been reviewed, and results considered in the medical decision making process. Course/Dx - Course Course Of Treatment: Patient is evaluated for a possible cellulitis versus DVT versus CRPS to the upper extremity 17 days s/p surgery. On physical examination , she is diffusely tender throughout the ventral side of the arm through the biceps brachii tendon and radiating up into the biceps and biceps brachii tendon radiating upwards to the rotator cuff as well as into the axillary area. Worse with palpation, better with rest and without movement. Labs obtained and show now WBC or elevated CRP. Discussed case with AILIN Bellamy from ortho ( patient requested I call him as he directed her to the ED 1 hour prior.) As physical exam and labs are otherwise negative, she will be given 1 dose hydrocodone in the ED and will follow-up with Dr. Stanley team early next week. - Diagnoses Differential Diagnosis/HQI/PQRI: Positive: Arthritis, Strain, Sprain Provider Diagnoses: Upper arm pain Discharge - Sign-Out/Discharge Documenting (check all that apply): Patient Departure - Discharge Plan Condition: Stable Disposition: HOME Referrals: Jory Garza NP [Primary Care Provider] - Additional Instructions: Please follow up with Dr. Stanley next week - Billing Disposition and Condition Condition: STABLE Disposition: Home
[2017-11-16 20:24] VITALS: BP 140/87
== END 2017-11-16 20:22 | disposition home or self-care (01) ==
LOC: ED 16:52
DX: M79.621 Pain in right upper arm (principal); F17.210 Nicotine dependence, cigarettes, uncomplicated; E05.00 Thyrotoxicosis with diffuse goiter without thyrotoxic crisis or storm; J45.909 Unspecified asthma, uncomplicated
CPT/HCPCS: 36415; 85025; 85652; 86140; 99282

== ENCOUNTER 2019-04-15 12:21 | Emergency (ER) | payer BC ==
[2019-04-15 12:49] VITALS: BP 112/74
--- NOTE | 2019-04-15 13:37 | UC ---
General HPI - HPI Summary HPI Summary: Patient states three days ago noticed swelling and pain in the left vulva region - she had similar incidence a few years ago. she has been doing warm compresses but continues to have swelling and pain. No issues with urinating. No fevers. Otherwise well. does shave in that area. No hx of MRSA that she is aware of. Meds; reviewed - History of Current Complaint Chief Complaint: UCSkin Stated Complaint: PERSONAL Time Seen by Provider: 04/15/19 13:18 Hx Last Menstrual Period: no menses w/ DEPO SHOT Pain Intensity: 7 - Allergy/Home Medications Allergies/Adverse Reactions: Allergies Allergy/AdvReac Type Severity Reaction Status Date / Time codeine Allergy Intermediate Hives Verified 04/15/19 12:42 naproxen Allergy Intermediate Hives/Diff. Verified 04/15/19 12:42 Breathing/I tching tramadol Allergy Intermediate Hives Verified 04/15/19 12:42 PMH/Surg Hx/FS Hx/Imm Hx Previously Healthy: Yes Other History Of: Negative For: HIV, Hepatitis B, Hepatitis C, Anticoagulant Therapy - Surgical History Surgical History: Yes Surgery Procedure, Year, and Place: Appendectomy, 2006. Breast Reduction , 2007. Tonsillectomy 1987. R wrist 07/13/2012, ligament repair. RT wrist surgery 08/2015. right wrist surgery 06/18. ulnar nerve right 2017. carpal tunnel right 2017, [facility]. RIGHT THUMB SURGERY x2 (06/02/17; Nov 2017). carpal tunnel right wrist 10/21/16. 07/2016-ULNAR NERVE-RIGHT ARM. right carpal tunnel sx 10/2016 - Family History Known Family History: Positive: Hypertension Negative: Cardiac Disease, Diabetes, Blood Disorder - Social History Alcohol Use: Rare Alcohol Amount: 2 per week Substance Use Type: None Smoking Status (MU): Heavy Every Day Tobacco Smoker Type: Cigarettes Amount Used/How Often: 10 per day X 15 yrs Length of Time of Smoking/Using Tobacco: Since Age 20 Have You Smoked in the Last Year: Yes Household Exposure Type: Cigarettes - Immunization History Most Recent Influenza Vaccination: 2643-4137 Most Recent Tetanus Shot: 08/13/15 Review of Systems All Other Systems Reviewed And Are Negative: Yes Physical Exam Triage Information Reviewed: Yes Appearance: Well-Appearing Vital Signs: Initial Vital Signs Temp 97.5 F 04/15/19 12:43 Pulse 104 04/15/19 12:43 Resp 16 04/15/19 12:43 BP 112/74 04/15/19 12:43 Pulse Ox 100 04/15/19 12:43 Vital Signs Reviewed: Yes Eyes: Positive: Conjunctiva Clear Pelvic Exam: Positive: Other - LEft vulva edematous and erythematous, firm but not fluctuant or indurated. No drainage. More firm center and erythematous mass noted Course/Dx - Course Course Of Treatment: This is a 38 yr old with bartholin cyst/abscess Area firm and not discrete appears not a good candidate for I&D at this time. Plan Could be Bartholin cyst or early abscess Recommend starting antibiotics - Bactrim as prescribed Continue with warm compresses If symptoms persist or worsen, recommend follow up with your CHRONIC DISEASE MANAGER - Diagnoses Provider Diagnosis: Bartholin's gland abscess Discharge ED - Sign-Out/Discharge Documenting (check all that apply): Patient Departure All imaging exams completed and their final reports reviewed: No Studies - Discharge Plan Condition: Fair Disposition: HOME Prescriptions: Sulfamethox/Trimethoprim DS* [Bactrim DS 800/160 TAB*] 1 tab PO BID #14 tab Patient Education Materials: Bartholin Cyst (ED) Referrals: Jory Garza NP [Primary Care Provider] - Additional Instructions: Could be Bartholin cyst or early abscess Recommend starting antibiotics - Bactrim as prescribed Continue with warm compresses If symptoms persist or worsen, recommend follow up with your CHRONIC DISEASE MANAGER - Billing Disposition and Condition Condition: FAIR Disposition: Home
== END 2019-04-15 13:37 | disposition home or self-care (01) ==
LOC: UCCORT 12:21
DX: N75.1 Abscess of Bartholin's gland (principal); F17.210 Nicotine dependence, cigarettes, uncomplicated; Z88.5 Allergy status to narcotic agent; Z88.8 Allergy status to other drugs, medicaments and biological substances
CPT/HCPCS: 99212; G0463